=== PATIENT | female | born 1935 | race Caucasian/White ===

== ENCOUNTER 2016-11-08 13:45 | Outpatient (CLI) | payer MEDICARE, OTHER ==
[2016-11-08 16:39] LABS: #Basophils 0.1 thou/uL (0.0-0.2); #Eosinphils 0.1 thou/uL (0.0-0.7); #Lymphocytes 1.9 thou/uL (1.20-3.40); #Monocytes 0.3 thou/uL (0.11-0.59); #Neutrophils 2.1 thou/uL (1.40-6.50); %Basophils 1.3 % (0.0-1.0); %Monocytes 7.1 % (0.0-10.0); Hematocrit 40.4 % (36.0-47.0); Mean Platelet Volume 5.4 fL (7.4-10.4); Red Blood Cell (RBC) Count 4.26 mill/uL (4.20-5.40); White Blood Cell (WBC) Count 4.6 thou/uL (4.8-10.8)
[2016-11-08 16:54] LABS: ALT (SGPT) 10 U/L (0-55); AST (SGOT) 16 U/L (5-34); Alkaline Phosphatase 81 U/L (40-150); Anion Gap 17 mmol/L (10-20); BUN (Urea Nitrogen) 8 mg/dL (9.8-20.1); Bilirubin, Direct 0.1 mg/dL (0.1-0.3); Bilirubin, Total 0.4 mg/dL (0.2-1.2); Calc. Creatinine Clearance 0 mL/min (70-130); Calcium 9.7 mg/dL (7.8-10.44); Carbon Dioxide 27 mmol/L (23-31); Chloride 99 mmol/L (98-107); Estimated GFR-MDRD 72; LDL Cholesterol, Calculated 155 mg/dL; Protein, Total 7.4 g/dL (5.8-8.1)
[2016-11-08 20:17] LABS: Hemoglobin A1c 5.3 % (4.0-6.0)
== END 2016-11-08 13:46 | disposition home or self-care (01) ==
LOC: NAV LABSP 13:45
PROVIDERS: ATTEND Family Medicine
DX: J30.9 Allergic rhinitis, unspecified (principal); I10 Essential (primary) hypertension; K29.70 Gastritis, unspecified, without bleeding; R42 Dizziness and giddiness; M54.5 Low back pain; Z79.899 Other long term (current) drug therapy
CPT/HCPCS: 36415; 80048; 80061; 80076; 83036; 84443; 85025

== ENCOUNTER 2017-03-12 11:52 | Outpatient (CLI) | payer MEDICARE, OTHER ==
[2017-03-12 14:49] LABS: ALT (SGPT) 13 U/L (8-55); AST (SGOT) 19 U/L (5-34); Albumin 4.3 g/dL (3.4-4.8); Alkaline Phosphatase 73 U/L (40-150); Anion Gap 17 mmol/L (10-20); BUN (Urea Nitrogen) 12 mg/dL (9.8-20.1); Bilirubin, Direct 0.2 mg/dL (0.1-0.3); Bilirubin, Total 0.5 mg/dL (0.2-1.2); Calc. Creatinine Clearance 0 mL/min (70-130); Calcium 9.4 mg/dL (7.8-10.44); Carbon Dioxide 26 mmol/L (23-31); Chloride 97 mmol/L (98-107); Cholesterol 254 mg/dl (< 200 Desired); Estimated GFR-MDRD 78; Glucose 89 mg/dL (83-110); HDL Cholesterol 63 mg/dL (>60 Neg Risk); LDL Cholesterol, Calculated 164 mg/dL; Potassium 3.9 mmol/L (3.5-5.1); Protein, Total 7.3 g/dL (6.0-8.3); Sodium 136 mmol/L (136-145); Triglycerides 133 mg/dL (Less than 150)
[2017-03-12 15:03] LABS: Hemoglobin A1c 5.4 % (4.0-6.0)
[2017-03-12 19:21] LABS: Bilirubin Negative (Negative); Blood, Urine Small (Negative); Clarity Clear (Clear); Glucose, Urine (Dipstick) Negative (Negative); Leukocyte Large (Negative); Nitrite Positive (Negative); Protein, Urine (Dipstick) Negative (Neg-Trace); Urobilinogen 0.2 mg/dL (0.2-1.0)
[2017-03-12 20:16] LABS: Bacteria/HPF 3+ HPF (None Seen); RBC/HPF 0-3 HPF (0-3); Squamous Epithelial 0-3 HPF (0-3)
[2017-03-12 22:16] LABS: #Basophils 0.1 thou/uL (0.0-0.2); #Eosinphils 0.3 thou/uL (0.0-0.7); #Monocytes 0.5 thou/uL (0.11-0.59); #Neutrophils 2.2 thou/uL (1.40-6.50); %Basophils 2.9 % (0.0-1.0); %Eosinophils 5.5 % (0.0-10.0); %Lymphocytes 39.5 % (21.0-51.0); %Monocytes 8.8 % (0.0-10.0); %Neutrophils 43.3 % (42.0-75.0); Hemoglobin 12.9 g/dL (12.0-16.0); Mean Corpuscular HGB CONC 32.4 g/dL (32.0-36.0); Mean Corpuscular Hemoglobin 30.6 pg (27.0-31.0); Mean Corpuscular Volume 94.2 fl (81.0-99.0); Mean Platelet Volume 5.1 fL (7.4-10.4); Platelet Count 231 thou/uL (130-400); Red Blood Cell (RBC) Count 4.22 mill/uL (4.20-5.40); White Blood Cell (WBC) Count 5.1 thou/uL (4.8-10.8)
== END 2017-03-12 11:53 ==
LOC: NAVSJIPCSP 11:52
PROVIDERS: ATTEND Family Medicine
DX: E78.00 Pure hypercholesterolemia, unspecified (principal); R53.83 Other fatigue; I10 Essential (primary) hypertension; Z79.899 Other long term (current) drug therapy
CPT/HCPCS: 36415; 80048; 80061; 80076; 81003; 81015; 83036; 84443; 85025

== ENCOUNTER 2017-04-02 10:28 | Outpatient (CLI) | payer MEDICARE, OTHER ==
[2017-04-02 13:19] LABS: Bilirubin Negative (Negative); Blood, Urine Moderate (Negative); Clarity Clear (Clear); Glucose, Urine (Dipstick) Negative (Negative); Leukocyte Trace (Negative); Nitrite Negative (Negative); Protein, Urine (Dipstick) Negative (Neg-Trace); Urobilinogen 0.2 mg/dL (0.2-1.0)
[2017-04-02 13:48] LABS: Bacteria/HPF Rare-Few HPF (None Seen); Squamous Epithelial 0-3 HPF (0-3); WBC/HPF 0-3 HPF (0-3)
== END 2017-04-02 10:29 | disposition home or self-care (01) ==
LOC: NAVSJIPCSP 10:28
PROVIDERS: ATTEND Family Medicine
DX: N30.00 Acute cystitis without hematuria (principal)
CPT/HCPCS: 81003; 81015; 87086

== ENCOUNTER 2017-11-04 21:23 | Observation (INO) | payer MEDICARE, OTHER ==
[2017-11-04] MEDS ORDERED: Sodium Chloride 0.9% 1,000 ML ONE (21:54)
[2017-11-04] MEDS ORDERED: Ondansetron HCl/PF 4 MG/2 ML Vial ONE ×2 (21:56→23:26)
[2017-11-04 22:05] LABS: Bilirubin Negative (Negative); Blood, Urine Moderate (Negative); Clarity Clear (Clear); Glucose, Urine (Dipstick) Negative (Negative); Leukocyte Trace (Negative); Nitrite Negative (Negative); Protein, Urine (Dipstick) Negative (Neg-Trace); Urobilinogen 0.2 mg/dL (0.2-1.0)
[2017-11-04 22:10] LABS: Squamous Epithelial None Seen HPF (0-3); WBC/HPF 0-3 HPF (0-3)
[2017-11-04 22:11] LABS: Bacteria/HPF Rare-Few HPF (None Seen)
[2017-11-04 22:17] LABS: #Basophils 0.1 thou/uL (0.0-0.2); #Eosinphils 0.3 thou/uL (0.0-0.7); #Lymphocytes 2.2 thou/uL (1.20-3.40); #Monocytes 0.6 thou/uL (0.11-0.59); #Neutrophils 7.8 thou/uL (1.40-6.50); %Basophils 0.7 % (0.0-1.0); %Eosinophils 2.3 % (0.0-10.0); %Lymphocytes 20.5 % (21.0-51.0); %Monocytes 5.1 % (0.0-10.0); %Neutrophils 71.4 % (42.0-75.0); Hemoglobin 14.1 g/dL (12.0-16.0); Mean Corpuscular HGB CONC 32.9 g/dL (32.0-36.0); Mean Corpuscular Hemoglobin 29.9 pg (27.0-31.0); Mean Corpuscular Volume 90.9 fl (81.0-99.0); Mean Platelet Volume 6.4 fL (7.4-10.4); Platelet Count 238 thou/uL (130-400); RBC Distribution Width 11.9 % (11.5-14.5); White Blood Cell (WBC) Count 10.9 thou/uL (4.8-10.8)
[2017-11-04 22:31] LABS: ALT (SGPT) 16 U/L (8-55); AST (SGOT) 23 U/L (5-34); Albumin 4.9 g/dL (3.4-4.8); Alkaline Phosphatase 83 U/L (40-150); Anion Gap 17 mmol/L (10-20); BUN (Urea Nitrogen) 12 mg/dL (9.8-20.1); Bilirubin, Total 0.5 mg/dL (0.2-1.2); Calc. Creatinine Clearance 0 mL/min (70-130); Calcium 10.3 mg/dL (7.8-10.44); Carbon Dioxide 28 mmol/L (23-31); Chloride 90 mmol/L (98-107); Estimated GFR-MDRD 69; Globulin 3.9 g/dL (2.4-3.5); Glucose 125 mg/dL (83-110); Lipase 38 U/L (8-78); Protein, Total 8.8 g/dL (6.0-8.3); Sodium 132 mmol/L (136-145)
[2017-11-04] MEDS ORDERED: Potassium Chloride 20 MEQ TAB ONE (22:50)
[2017-11-04] MEDS ORDERED: Mag-Al Plus 1200 MG/1200 MG/120 MG/30 ML UDCUP ONE (23:11)
[2017-11-04] MEDS ORDERED: Morphine 4 MG/ML Carpuject ONE (23:55)
[2017-11-05] MEDS ORDERED: Promethazine HCl 25 MG/ML VIAL ONE (00:01)
[2017-11-05 01:16] VITALS: BMI 24.8
[2017-11-05] MEDS: Sodium Chloride 0.9% 1,000 ML IV SCH ×3 (01:44→11:07)
[2017-11-05] MEDS: Ondansetron HCl/PF 4 MG/2 ML Vial IVP PRN ×2 (02:59→09:25)
[2017-11-05] MEDS ORDERED: Milk Of Magnesia 30 ML UDCUP PO PRN (09:57)
[2017-11-05] MEDS ORDERED: Loperamide HCl 2 MG CAP PO PRN (09:57)
[2017-11-05] MEDS ORDERED: Sodium Chloride 0.9% 1,000 ML IV SCH (10:00)
[2017-11-05 15:44] VITALS: BP 135/64; TEMP 97.7
--- NOTE | 2017-11-05 20:38 | HP ---
DATE OF ADMISSION: 11/05/2017 OBSERVATION HISTORY AND PHYSICAL AND DISCHARGE HISTORY OF PRESENT ILLNESS: Ms. Ojeda is a very pleasant 82-year-old white female that Sunday nigh t, ate deviled eggs and sausage. Sunday morning, she was not feeling well, so she only ate Cracker b ut went to [facility] and had ice cream and then chicken soup. Soon after that, she had a very bad stomac toshia and took some Pepto-Bismol. She vomited, had increasing pain, went to the emergency room. It was noted that she was slightly dehydrated and had low potassium, so she was given potassium pills an d promptly threw that up. She started having vomiting and therefore ER doctor asked me to place her in observation for IV hydration. She was admitted to the hospital under observation. Patient states she was continued to feel poorly, but her IV made her feel better and she vomited abou t 3:30 and then she felt much better. This morning, the patient states she is feeling much better, but I told her to be cautious and we chio l start her off on clear liquids if that did well; at lunch, we will give her a bland diet. The patient tolerated bland diet well and states she feels much better and requests to go home. PAST MEDICAL HISTORY: Positive for, 1. Hypertension. 2. Hypercholesterolemia. 3. Back pain. 4. Cardiac arrhythmia. 5. Allergic rhinitis. 6. Sciatica. 7. Cervical disk degeneration. 8. Seborrheic dermatitis. 9. Gangrene of the left wrist. 10. Gastritis without bleeding in the distant past. 11. Anxiety, but will not take any SSRIs. PAST SURGICAL HISTORY: 1. Reveals the patient had a right lobe partial thyroidectomy in 1971. 2. The patient had a right breast lumpectomy in 1972. 3. Cholecystectomy in 1973. 4. Colonoscopy by Dr. Monroy in 07/2011. PRESENT MEDICATIONS: Revealed the patient presently takes, 1. Meclizine 1 tablet p.r.n. vertigo. 2. Robaxin 750 one q.4 hours p.r.n. severe muscle spasms and triamterene/hydrochlorothiazide which s he takes once daily, but she takes it p.r.n. when she feels like it. FAMILY HISTORY: Reveals patient's father at age 83 with thyroid cancer. The patient's mother d ied at age 52 of abdominal hysterectomy and blood clot. The patient has siblings with lung cancer, h eart disease. SOCIAL HISTORY: Reveals the patient is a smoker, does not drink any alcohol, does not exercise and d oes not use any drugs besides her Xanax that she has taken in the distant past. ALLERGIES: Reveal she is allergic to ASPIRIN, STATINS, WELCHOL and CELEBREX. REVIEW OF SYSTEMS: Reveal the patient denies any fever or chills, but had some night sweats. She de nies headache, but she had some weakness and fatigue. Denies any visual changes or hearing changes. The patient has not had any rhinorrhea, congestion, sore throat or hoarseness. She denies any cough , cold, congestion or hemoptysis. She denies any cardiovascular problems including edema, chest pain , orthopnea, claudication or dyspnea on exertion. The patient does have nausea, vomiting, and mid ab dominal pain which is resolved on examination this morning. She denies any diarrhea or constipation. Denies any genitourinary problems, urgency, frequency or dysuria. She denies any joint pain, back pain, muscle stiffness or weakness at this time. Denies any rashes. PHYSICAL EXAMINATION: GENERAL: This is a well-developed, well-nourished, white female in no apparent distress at this time . HEENT: Reveals normocephalic, nontraumatic cranium. Pupils are equally round and reactive. Extraoc ular movements are intact. Nose and throat are slightly dry. NECK: Supple, without mass, nodes or bruits. CHEST: Clear to auscultation. No rales, no rhonchi, no wheezes are heard. HEART: Reveals a regular rate and rhythm without murmurs, gallops or rubs. ABDOMEN: Soft, nontender. Normal bowel sounds are heard this morning. No rebound is noted. No gua rding is noted. No significant abdominal pain is noted. : Deferred. EXTREMITIES: Reveal no clubbing, no cyanosis or edema. Peripheral pulses are bilaterally equal. NEUROLOGIC: The patient is intact. She is oriented x3, no gross focal findings are noted. ASSESSMENT: 1. Gastroenteritis. 2. Dehydration. 3. Hypokalemia. 4. History of hypertension. 5. Hypercholesterolemia, refuses statins. 6. Allergic rhinitis. PLAN: 1. The patient was hydrated overnight. We will cut her IV down from 100 mL an hour to 50 mL an hour . 2. Feed the patient a clear liquid diet this morning. 3. If she tolerates that clear liquid diet, we will give her a bland diet at lunch. 4. Continue present medication, but hold triamterene for the next couple of days. 5. Supportive care. ADDENDUM: The patient's nurse called me this afternoon soon after the patient finished eating lunch and states she tolerated her bland diet very well. She is feeling back at 100% and she has her famil y there that wants to take her home. She did not have any problems with stomachache anymore. She is not vomiting. She feels well. She is up and walking around. Therefore, we will discharge the [place] ent. DISCHARGE MEDICATIONS: Include the following instructions: 1. [place] diet for the next 2-3 days. 2. Drink lots of liquids. 3. Hold triamterene/hydrochlorothiazide 75/50 until blood pressure gets back to her normal. 4. Contact the office with any further problems. 5. Make sure she follows up with me in my office in the next couple of weeks.
[2017-11-05] MEDS ORDERED: Famotidine 20 MG TAB PO SCH (21:00)
== END 2017-11-05 16:22 | disposition home or self-care (01) ==
LOC: NAV ERS 21:23 → NAV ACUTE 11-05 00:13 → UNDOADMOB 11-05 00:13
PROVIDERS: ADMIT Family Medicine; ATTEND Family Medicine
DX: K52.9 Noninfective gastroenteritis and colitis, unspecified (principal); E87.6 Hypokalemia; E86.0 Dehydration; I10 Essential (primary) hypertension; E78.00 Pure hypercholesterolemia, unspecified; J30.9 Allergic rhinitis, unspecified; I49.9 Cardiac arrhythmia, unspecified; M50.30 Other cervical disc degeneration, unspecified cervical region; L21.9 Seborrheic dermatitis, unspecified; E89.0 Postprocedural hypothyroidism; F41.9 Anxiety disorder, unspecified; F17.200 Nicotine dependence, unspecified, uncomplicated; Z88.8 Allergy status to other drugs, medicaments and biological substances; Z90.49 Acquired absence of other specified parts of digestive tract; Z98.890 Other specified postprocedural states; Z80.8 Family history of malignant neoplasm of other organs or systems
CPT/HCPCS: 80053; 81003; 81015; 83690; 85025; 87086; 96361; 96372; 96374; 96375; 96376; G0378; J2270; J2405; J2550; J7050

== ENCOUNTER 2022-05-18 16:55 | Emergency (ER) | payer MEDICARE ==
[~2022-05-18 16:55] MED LIST: Iopamidol 370 76% 100 ML VIAL ONE
[2022-05-18] MEDS ORDERED: Morphine 2 MG/ML VIAL ONE (19:21)
[2022-05-18] MEDS ORDERED: Sodium Chloride 0.9% 1,000 ML ONE (19:21)
[2022-05-18 19:22] LABS: #Eosinphils 0.1 thou/uL (0.0-0.7); #Lymphocytes 1.6 thou/uL (1.20-3.40); #Monocytes 0.5 thou/uL (0.11-0.59); #Neutrophils 4.6 thou/uL (1.40-6.50); %Basophils 0.6 % (0.0-1.0); %Lymphocytes 23.9 % (21.0-51.0); %Monocytes 6.9 % (0.0-10.0); %Neutrophils 67.5 % (42.0-75.0); Hemoglobin 11.5 g/dL (12.0-16.0); Mean Corpuscular HGB CONC 30.8 g/dL (32.0-36.0); Mean Corpuscular Hemoglobin 29.6 pg (27.0-31.0); Mean Corpuscular Volume 96.1 fL (78.0-98.0); Mean Platelet Volume 5.5 fL (7.4-10.4); Platelet Count 336 thou/uL (130-400); RBC Distribution Width 13.1 % (11.5-14.5); Red Blood Cell (RBC) Count 3.89 mill/uL (4.20-5.40); White Blood Cell (WBC) Count 6.8 thou/uL (4.8-10.8)
[2022-05-18 19:24] LABS: Bilirubin Negative (Negative); Blood, Urine Trace (Negative); Glucose, Urine (Dipstick) Negative (Negative); Ketone, Urine Negative (Negative); Leukocyte Large (Negative); Nitrite Negative (Negative); Protein, Urine (Dipstick) Negative (Neg-Trace); Urobilinogen 0.2 mg/dL (Less than 2)
[2022-05-18 19:25] LABS: Clarity Hazy (Clear)
[2022-05-18 19:43] LABS: ALT (SGPT) 17 U/L (8-55); AST (SGOT) 32 U/L (5-34); Albumin 4.3 g/dL (3.4-4.8); Alkaline Phosphatase 171 U/L (40-110); Anion Gap 19 mmol/L (10-20); BUN (Urea Nitrogen) 18 mg/dL (9.8-20.1); Bilirubin, Total 0.4 mg/dL (0.2-1.2); Calc. Creatinine Clearance 0 mL/min (70-130); Calcium 9.9 mg/dL (7.8-10.44); Carbon Dioxide 25 mmol/L (23-31); Chloride 92 mmol/L (98-107); Estimated GFR 77; Globulin 4.1 g/dL (2.4-3.5); Glucose 107 mg/dL (83-110); Potassium 3.6 mmol/L (3.5-5.1); Protein, Total 8.4 g/dL (5.8-8.1); Sodium 132 mmol/L (136-145)
[2022-05-18 19:49] LABS: RBC/HPF None Seen HPF (0-3); Specific Gravity, Urine 1.009 (1.002-1.036); Squamous Epithelial 0-3 HPF (0-3)
[2022-05-18 19:50] LABS: Bacteria/HPF 4+ HPF (None Seen)
[2022-05-18] MEDS ORDERED: cefTRIAXone\\ROCEPHIN 2 GM VIAL ONE (20:18)
[2022-05-18] MEDS ORDERED: Sodium Chloride 0.9% 100 ML ONE (20:18)
[2022-05-18] MEDS ORDERED: HYDROcodone/Acetaminophen 5/325 mg Tablet ONE (20:58)
== END 2022-05-18 21:35 | disposition home or self-care (01) ==
LOC: NAV ERS 16:55
DX: N30.00 Acute cystitis without hematuria (principal); R59.0 Localized enlarged lymph nodes; M54.50 Low back pain, unspecified; R10.32 Left lower quadrant pain; E78.00 Pure hypercholesterolemia, unspecified; I10 Essential (primary) hypertension; Z79.899 Other long term (current) drug therapy
CPT/HCPCS: 71275; 74174; 80053; 85025; 87077; 87086; 87186; 96361; 96365; 96375; 99284; J2270; 81003; 81015; J0696; J3490; J7050; Q9967

== ENCOUNTER 2022-05-22 17:00 | Observation (INO) | payer MEDICARE ==
[2022-05-22 18:45] LABS: #Basophils 0.1 thou/uL (0.0-0.2); #Lymphocytes 2.1 thou/uL (1.20-3.40); #Monocytes 0.8 thou/uL (0.11-0.59); #Neutrophils 5.4 thou/uL (1.40-6.50); %Basophils 0.7 % (0.0-1.0); %Eosinophils 0.6 % (0.0-10.0); %Monocytes 9.2 % (0.0-10.0); %Neutrophils 64.5 % (42.0-75.0); Hemoglobin 10.8 g/dL (12.0-16.0); Mean Corpuscular Hemoglobin 29.7 pg (27.0-31.0); Mean Corpuscular Volume 92.9 fL (78.0-98.0); Mean Platelet Volume 5.3 fL (7.4-10.4); Platelet Count 302 thou/uL (130-400); RBC Distribution Width 12.9 % (11.5-14.5); Red Blood Cell (RBC) Count 3.64 mill/uL (4.20-5.40); White Blood Cell (WBC) Count 8.4 thou/uL (4.8-10.8)
[2022-05-22] MEDS ORDERED: Morphine 2 MG/ML VIAL ONE (18:48)
[2022-05-22] MEDS ORDERED: Ondansetron PF 4 MG/2 ML Vial ONE (18:48)
[2022-05-22 19:08] LABS: ALT (SGPT) 17 U/L (8-55); AST (SGOT) 26 U/L (5-34); Alkaline Phosphatase 162 U/L (40-110); Anion Gap 19 mmol/L (10-20); BUN (Urea Nitrogen) 14 mg/dL (9.8-20.1); Bilirubin, Total 0.5 mg/dL (0.2-1.2); Calc. Creatinine Clearance 0 mL/min (70-130); Calcium 9.6 mg/dL (7.8-10.44); Carbon Dioxide 23 mmol/L (23-31); Chloride 88 mmol/L (98-107); Estimated GFR 84; Globulin 3.9 g/dL (2.4-3.5); Glucose 99 mg/dL (83-110); Lipase 27 U/L (8-78); Potassium 3.4 mmol/L (3.5-5.1); Protein, Total 7.9 g/dL (5.8-8.1); Sodium 127 mmol/L (136-145)
[2022-05-22] MEDS ORDERED: NS 0.9% w/ 20 MEQ KCL 1,000 ML ONE (22:43)
[2022-05-22] MEDS ORDERED: Bisacodyl 5 MG TAB ONE (23:05)
[2022-05-22 23:47] LABS: SARS-CoV-2 NAA Rapid Test Not Detected (NotDetected)
[2022-05-23] MEDS ORDERED: Magnesium Citrate 300 ML BOT PO PRN (00:13)
[2022-05-23] MEDS ORDERED: Ondansetron ODT 4 MG TAB SL PRN (00:15)
[2022-05-23] MEDS ORDERED: Ondansetron PF 4 MG/2 ML Vial IVP PRN (00:15)
[2022-05-23] MEDS ORDERED: Acetaminophen 325 MG TAB PO PRN (00:15)
[2022-05-23] MEDS ORDERED: NS 0.9% w/ 20 MEQ KCL 1,000 ML IV SCH (00:30)
[2022-05-23] MEDS ORDERED: cloNIDine 0.1 MG TAB PO SCH (01:00)
[2022-05-23] MEDS: HYDROcodone/Acetaminophen 5/325 mg Tablet PO PRN ×2 (01:04→06:31)
[2022-05-23 01:31] VITALS: BMI 26.9
[2022-05-23 06:22] LABS: #Basophils 0.1 thou/uL (0.0-0.2); #Eosinphils 0.1 thou/uL (0.0-0.7); #Lymphocytes 1.9 thou/uL (1.20-3.40); #Monocytes 0.7 thou/uL (0.11-0.59); #Neutrophils 3.3 thou/uL (1.40-6.50); %Basophils 1.5 % (0.0-1.0); %Eosinophils 0.9 % (0.0-10.0); %Lymphocytes 31.6 % (21.0-51.0); %Monocytes 11.4 % (0.0-10.0); %Neutrophils 54.6 % (42.0-75.0); Hemoglobin 9.7 g/dL (12.0-16.0); Mean Corpuscular HGB CONC 30.9 g/dL (32.0-36.0); Mean Corpuscular Hemoglobin 29.4 pg (27.0-31.0); Mean Corpuscular Volume 95.1 fL (78.0-98.0); Mean Platelet Volume 5.7 fL (7.4-10.4); Platelet Count 268 thou/uL (130-400); RBC Distribution Width 13.5 % (11.5-14.5); Red Blood Cell (RBC) Count 3.28 mill/uL (4.20-5.40)
[2022-05-23 06:28] LABS: Anion Gap 15 mmol/L (10-20); BUN (Urea Nitrogen) 11 mg/dL (9.8-20.1); Calc. Creatinine Clearance 66 mL/min (70-130); Calcium 8.9 mg/dL (7.8-10.44); Carbon Dioxide 24 mmol/L (23-31); Chloride 97 mmol/L (98-107); Estimated GFR 85; Glucose 94 mg/dL (83-110); Potassium 4.2 mmol/L (3.5-5.1); Sodium 132 mmol/L (136-145)
[2022-05-23] MEDS ORDERED: Methocarbamol 500 MG TAB PO SCH (09:00)
[2022-05-23] MEDS ORDERED: Lactulose 10 GM/15 ML Oral Solution PO SCH (09:00)
[2022-05-23] MEDS: Phenazopyridine HCl 95 MG TAB PO SCH ×3 (09:24→17:19)
[2022-05-23] MEDS: Nitrofurantoin Monohyd/M-Cryst 100 MG CAP PO SCH ×2 (09:24→20:24)
[2022-05-23] MEDS: traMADol HCl 50 MG TAB PO PRN (14:06)
[2022-05-23] MEDS: Acetaminophen 325 MG TAB PO PRN (19:26)
[2022-05-24] MEDS: traMADol HCl 50 MG TAB PO PRN (01:20)
[2022-05-24] MEDS: Acetaminophen 325 MG TAB PO PRN (06:48)
[2022-05-24] MEDS ORDERED: traMADol HCl 50 MG TAB PO PRN ×2 (08:04→08:06)
[2022-05-24] MEDS ORDERED: Acetaminophen 325 MG TAB PO PRN (08:06)
[2022-05-24] MEDS: Phenazopyridine HCl 95 MG TAB PO SCH ×2 (08:20→12:51)
[2022-05-24] MEDS: Nitrofurantoin Monohyd/M-Cryst 100 MG CAP PO SCH (08:20)
[2022-05-24] MEDS ORDERED: Lidocaine 5% Patch TD SCH (09:00)
[2022-05-24 11:33] VITALS: BP 133/70
[2022-05-24 12:17] VITALS: TEMP 97.6
[2022-05-24] MEDS ORDERED: Transdermal Patch Removal TOP SCH (21:00)
== END 2022-05-24 13:00 | disposition swing bed (61) ==
LOC: NAV ERS 17:00 → NAV ACUTE 23:53
PROVIDERS: ADMIT Family Medicine; ATTEND Family Medicine
DX: E87.1 Hypo-osmolality and hyponatremia (principal); E87.6 Hypokalemia; K59.01 Slow transit constipation; R11.2 Nausea with vomiting, unspecified; R53.1 Weakness; S22.080A Wedge compression fracture of T11-T12 vertebra, initial encounter for closed fracture; S32.021A Stable burst fracture of second lumbar vertebra, initial encounter for closed fracture; M16.0 Bilateral primary osteoarthritis of hip; E78.00 Pure hypercholesterolemia, unspecified; I10 Essential (primary) hypertension; N63.0 Unspecified lump in unspecified breast; E89.0 Postprocedural hypothyroidism; N39.0 Urinary tract infection, site not specified; Z91.81 History of falling; Z79.2 Long term (current) use of antibiotics; Z79.899 Other long term (current) drug therapy; Z88.8 Allergy status to other drugs, medicaments and biological substances; Z20.822 Contact with and (suspected) exposure to COVID-19; X58.XXXA Exposure to other specified factors, initial encounter
CPT/HCPCS: 36415; 71046; 74177; 80048; 80053; 82274; 83690; 85025; 90471; 90732; 96365; 96375; G0009; G0378; J2270; J2405; J3480; Q9967; U0002

== ENCOUNTER 2022-05-23 15:24 | Inpatient (IN) | payer MEDICARE ==
[2022-05-24] MEDS ORDERED: Promethazine HCl 25 MG SUPP PR PRN (13:31)
[2022-05-24] MEDS ORDERED: Bisacodyl 10 MG SUPP PR PRN (13:31)
[2022-05-24] MEDS ORDERED: Artificial Tear Sol 15 ML BOT EA EYE PRN (13:31)
[2022-05-24] MEDS ORDERED: Calcium Carbonate 500 MG ChewTAB PO PRN (13:31)
[2022-05-24] MEDS ORDERED: Cepastat Lozenges 1 LOZ PO PRN (13:31)
[2022-05-24] MEDS ORDERED: Sodium Chloride 0.65% Nasal 44 ML BOT EA NARE PRN (13:31)
[2022-05-24] MEDS ORDERED: Enoxaparin Sodium 40 MG/0.4 ML SYRINGE SC SCH (14:00)
[2022-05-24] MEDS: traMADol HCl 50 MG TAB PO PRN (20:59)
[2022-05-24] MEDS: Famotidine 20 MG TAB PO SCH (20:59)
[2022-05-24] MEDS ORDERED: Triamcinolone 0.1% Cream 15 GM TUBE TOP SCH ×2 (21:30→23:00)
[2022-05-24] MEDS ORDERED: Nitrofurantoin Monohyd/M-Cryst 100 MG CAP PO SCH ×2 (23:00)
[2022-05-25 06:15] LABS: #Basophils 0.1 thou/uL (0.0-0.2); #Lymphocytes 1.5 thou/uL (1.20-3.40); #Monocytes 0.7 thou/uL (0.11-0.59); #Neutrophils 4.5 thou/uL (1.40-6.50); %Basophils 0.7 % (0.0-1.0); %Eosinophils 0.4 % (0.0-10.0); %Lymphocytes 22.1 % (21.0-51.0); %Monocytes 10.6 % (0.0-10.0); %Neutrophils 66.1 % (42.0-75.0); Hemoglobin 9.4 g/dL (12.0-16.0); Mean Corpuscular HGB CONC 30.7 g/dL (32.0-36.0); Mean Corpuscular Hemoglobin 29.1 pg (27.0-31.0); Mean Corpuscular Volume 94.9 fL (78.0-98.0); Mean Platelet Volume 5.5 fL (7.4-10.4); Platelet Count 272 thou/uL (130-400); RBC Distribution Width 13.4 % (11.5-14.5); Red Blood Cell (RBC) Count 3.22 mill/uL (4.20-5.40); White Blood Cell (WBC) Count 6.8 thou/uL (4.8-10.8)
[2022-05-25 06:25] LABS: Anion Gap 14 mmol/L (10-20); BUN (Urea Nitrogen) 6 mg/dL (9.8-20.1); Calc. Creatinine Clearance 74 mL/min (70-130); Calcium 8.9 mg/dL (7.8-10.44); Carbon Dioxide 26 mmol/L (23-31); Chloride 94 mmol/L (98-107); Estimated GFR 87; Glucose 112 mg/dL (83-110); Potassium 3.2 mmol/L (3.5-5.1); Sodium 131 mmol/L (136-145)
[2022-05-25] MEDS: Nitrofurantoin Monohyd/M-Cryst 100 MG CAP PO SCH ×2 (08:45→20:08)
[2022-05-25] MEDS: Phenazopyridine HCl 95 MG TAB PO SCH ×3 (08:45→18:06)
[2022-05-25] MEDS: Famotidine 20 MG TAB PO SCH ×2 (08:45→20:08)
[2022-05-25] MEDS: Lidocaine 5% Patch TD SCH (08:45)
[2022-05-25] MEDS: Triamterene/Hydrochlorothiazide 37.5 mg/25 mg Tablet PO SCH (08:45)
[2022-05-25] MEDS: Triamcinolone 0.1% Cream 15 GM TUBE TOP SCH ×2 (08:50→20:08)
[2022-05-25] MEDS: traMADol HCl 50 MG TAB PO PRN ×2 (09:10→20:07)
[2022-05-25] MEDS: Ondansetron ODT 4 MG TAB PO PRN (10:17)
[2022-05-25] MEDS: Senokot S 8.6-50 MG TAB PO PRN (12:59)
[2022-05-25] MEDS: Acetaminophen 325 MG TAB PO PRN (12:59)
[2022-05-25] MEDS: LIDOCAINE Patch Removal TOP SCH (20:09)
[2022-05-26] MEDS: traMADol HCl 50 MG TAB PO PRN ×2 (08:54→18:43)
[2022-05-26] MEDS: Nitrofurantoin Monohyd/M-Cryst 100 MG CAP PO SCH ×2 (08:56→20:44)
[2022-05-26] MEDS: Benzonatate 100 MG CAP PO PRN (08:56)
[2022-05-26] MEDS: Lidocaine 5% Patch TD SCH (08:56)
[2022-05-26] MEDS: Famotidine 20 MG TAB PO SCH ×2 (08:56→20:44)
[2022-05-26] MEDS: Triamterene/Hydrochlorothiazide 37.5 mg/25 mg Tablet PO SCH (08:56)
[2022-05-26] MEDS: Phenazopyridine HCl 95 MG TAB PO SCH ×3 (08:56→18:27)
[2022-05-26] MEDS: Triamcinolone 0.1% Cream 15 GM TUBE TOP SCH ×2 (08:58→20:44)
[2022-05-26] MEDS: Senokot S 8.6-50 MG TAB PO PRN (11:22)
[2022-05-26] MEDS ORDERED: Phenazopyridine HCl 95 MG TAB ONE (11:52)
[2022-05-26] MEDS: Potassium Chloride 20 MEQ TAB PO SCH (18:27)
[2022-05-26] MEDS: Bisacodyl 5 MG TAB PO PRN (20:44)
[2022-05-26] MEDS: LIDOCAINE Patch Removal TOP SCH (20:45)
[2022-05-27] MEDS: traMADol HCl 50 MG TAB PO PRN ×3 (02:49→21:09)
[2022-05-27 05:52] LABS: Anion Gap 17 mmol/L (10-20); BUN (Urea Nitrogen) 10 mg/dL (9.8-20.1); Calc. Creatinine Clearance 64 mL/min (70-130); Calcium 9.2 mg/dL (7.8-10.44); Carbon Dioxide 28 mmol/L (23-31); Chloride 90 mmol/L (98-107); Estimated GFR 84; Glucose 98 mg/dL (83-110); Potassium 3.5 mmol/L (3.5-5.1); Sodium 131 mmol/L (136-145)
[2022-05-27 05:54] LABS: Magnesium 1.7 mg/dL (1.6-2.6)
[2022-05-27] MEDS: Polyethylene Glycol 3350 17 GM Packet PO SCH (09:21)
[2022-05-27] MEDS: Triamcinolone 0.1% Cream 15 GM TUBE TOP SCH ×2 (09:22→21:09)
[2022-05-27] MEDS: Lidocaine 5% Patch TD SCH (09:22)
[2022-05-27] MEDS: Potassium Chloride 20 MEQ TAB PO SCH (09:23)
[2022-05-27] MEDS: Phenazopyridine HCl 95 MG TAB PO SCH ×3 (09:23→18:32)
[2022-05-27] MEDS: Famotidine 20 MG TAB PO SCH ×2 (09:24→21:09)
[2022-05-27] MEDS: Triamterene/Hydrochlorothiazide 37.5 mg/25 mg Tablet PO SCH (09:24)
[2022-05-27] MEDS: Bisacodyl 5 MG TAB PO PRN (15:05)
[2022-05-27] MEDS: LIDOCAINE Patch Removal TOP SCH (22:23)
[2022-05-27] MEDS: Methocarbamol 500 MG TAB PO PRN (23:37)
[2022-05-28 00:44] LABS: BUN (Urea Nitrogen) 12 mg/dL (9.8-20.1); Calc. Creatinine Clearance 61 mL/min (70-130); Calcium 9.1 mg/dL (7.8-10.44); Carbon Dioxide 24 mmol/L (23-31); Estimated GFR 83; Glucose 120 mg/dL (83-110)
[2022-05-28 00:50] LABS: Chloride 87 mmol/L (98-107); Potassium 3.5 mmol/L (3.5-5.1); Sodium 125 mmol/L (136-145)
[2022-05-28 01:06] LABS: Anion Gap 13 mmol/L (10-20)
[2022-05-28 05:35] LABS: Magnesium 1.6 mg/dL (1.6-2.6); Phosphorus 3.2 mg/dL (2.3-4.7)
[2022-05-28 08:02] LABS: #Eosinphils 0.1 thou/uL (0.0-0.7); #Lymphocytes 0.7 thou/uL (1.20-3.40); #Monocytes 0.5 thou/uL (0.11-0.59); %Basophils 0.9 % (0.0-1.0); %Lymphocytes 15.5 % (21.0-51.0); %Monocytes 11.2 % (0.0-10.0); %Neutrophils 70.3 % (42.0-75.0); Hemoglobin 10.5 g/dL (12.0-16.0); Mean Corpuscular HGB CONC 32.2 g/dL (32.0-36.0); Mean Corpuscular Hemoglobin 30.4 pg (27.0-31.0); Mean Corpuscular Volume 94.2 fL (78.0-98.0); Mean Platelet Volume 5.3 fL (7.4-10.4); Platelet Count 347 thou/uL (130-400); RBC Distribution Width 12.9 % (11.5-14.5); Red Blood Cell (RBC) Count 3.47 mill/uL (4.20-5.40); White Blood Cell (WBC) Count 4.2 thou/uL (4.8-10.8)
[2022-05-28 08:13] LABS: Anion Gap 17 mmol/L (10-20); BUN (Urea Nitrogen) 9 mg/dL (9.8-20.1); Calc. Creatinine Clearance 65 mL/min (70-130); Calcium 9.5 mg/dL (7.8-10.44); Carbon Dioxide 30 mmol/L (23-31); Chloride 89 mmol/L (98-107); Estimated GFR 83; Glucose 102 mg/dL (83-110); Potassium 3.6 mmol/L (3.5-5.1); Sodium 132 mmol/L (136-145)
[2022-05-28] MEDS: Methocarbamol 500 MG TAB PO PRN ×2 (09:19→20:28)
[2022-05-28] MEDS: Phenazopyridine HCl 95 MG TAB PO SCH ×3 (09:20→17:41)
[2022-05-28] MEDS: Famotidine 20 MG TAB PO SCH ×2 (09:20→20:28)
[2022-05-28] MEDS: Amlodipine 5 MG TAB PO SCH (09:20)
[2022-05-28] MEDS: Lidocaine 5% Patch TD SCH (09:20)
[2022-05-28] MEDS: Polyethylene Glycol 3350 17 GM Packet PO SCH (09:21)
[2022-05-28] MEDS: Triamcinolone 0.1% Cream 15 GM TUBE TOP SCH ×2 (09:22→20:30)
[2022-05-28] MEDS: Ondansetron ODT 4 MG TAB PO PRN ×2 (09:29→13:22)
[2022-05-28] MEDS: traMADol HCl 50 MG TAB PO PRN ×2 (13:21→20:29)
[2022-05-28] MEDS: Loratadine 10 MG TAB PO PRN (15:41)
[2022-05-28] MEDS: Benzonatate 100 MG CAP PO PRN (20:28)
[2022-05-28] MEDS: LIDOCAINE Patch Removal TOP SCH (20:29)
[2022-05-29 06:06] LABS: Anion Gap 15 mmol/L (10-20); BUN (Urea Nitrogen) 8 mg/dL (9.8-20.1); Calc. Creatinine Clearance 70 mL/min (70-130); Carbon Dioxide 30 mmol/L (23-31); Chloride 93 mmol/L (98-107); Estimated GFR 85; Glucose 101 mg/dL (83-110); Potassium 3.2 mmol/L (3.5-5.1); Sodium 135 mmol/L (136-145)
[2022-05-29] MEDS: Ondansetron ODT 4 MG TAB PO PRN (07:57)
[2022-05-29] MEDS: Fluticasone Propionate Nasal Spray 16 gm Bottle NASAL SCH (07:59)
[2022-05-29] MEDS: Lidocaine 5% Patch TD SCH (08:00)
[2022-05-29] MEDS: Famotidine 20 MG TAB PO SCH ×2 (08:43→19:53)
[2022-05-29] MEDS: Amlodipine 5 MG TAB PO SCH (08:43)
[2022-05-29] MEDS: Polyethylene Glycol 3350 17 GM Packet PO SCH (08:44)
[2022-05-29] MEDS: Phenazopyridine HCl 95 MG TAB PO SCH ×3 (08:44→18:40)
[2022-05-29] MEDS: Triamcinolone 0.1% Cream 15 GM TUBE TOP SCH ×2 (08:47→19:56)
[2022-05-29] MEDS ORDERED: Lactulose 10 GM/15 ML Oral Solution ONE (08:52)
[2022-05-29] MEDS: Acetaminophen 325 MG TAB PO PRN (12:06)
[2022-05-29] MEDS: traMADol HCl 50 MG TAB PO PRN ×2 (18:40→19:51)
[2022-05-29] MEDS: LIDOCAINE Patch Removal TOP SCH (19:56)
[2022-05-29] MEDS ORDERED: traMADol HCl 50 MG TAB PO SCH (20:15)
[2022-05-30] MEDS: Fluticasone Propionate Nasal Spray 16 gm Bottle NASAL SCH (08:46)
[2022-05-30] MEDS: Ondansetron ODT 4 MG TAB PO PRN (08:48)
[2022-05-30] MEDS: Lidocaine 5% Patch TD SCH (08:49)
[2022-05-30] MEDS: Famotidine 20 MG TAB PO SCH ×2 (12:54→21:18)
[2022-05-30] MEDS: Phenazopyridine HCl 95 MG TAB PO SCH ×3 (12:54→17:12)
[2022-05-30] MEDS: Polyethylene Glycol 3350 17 GM Packet PO SCH (12:54)
[2022-05-30] MEDS: Amlodipine 5 MG TAB PO SCH (12:54)
[2022-05-30] MEDS: traMADol HCl 50 MG TAB PO PRN ×2 (13:00→21:22)
[2022-05-30] MEDS: Triamcinolone 0.1% Cream 15 GM TUBE TOP SCH ×2 (15:13→21:19)
[2022-05-30] MEDS ORDERED: Clotrimazole 1% Cream 15 GM TUBE TOP SCH (15:15)
[2022-05-30] MEDS: LIDOCAINE Patch Removal TOP SCH (21:18)
[2022-05-31 06:23] LABS: Anion Gap 16 mmol/L (10-20); BUN (Urea Nitrogen) 8 mg/dL (9.8-20.1); Calc. Creatinine Clearance 69 mL/min (70-130); Calcium 8.5 mg/dL (7.8-10.44); Carbon Dioxide 28 mmol/L (23-31); Chloride 91 mmol/L (98-107); Estimated GFR 85; Glucose 103 mg/dL (83-110); Potassium 3.7 mmol/L (3.5-5.1); Sodium 131 mmol/L (136-145)
[2022-05-31 06:41] LABS: #Basophils 0.1 thou/uL (0.0-0.2); #Eosinphils 0.3 thou/uL (0.0-0.7); #Lymphocytes 0.7 thou/uL (1.20-3.40); #Monocytes 0.4 thou/uL (0.11-0.59); #Neutrophils 4.2 thou/uL (1.40-6.50); %Basophils 0.9 % (0.0-1.0); %Eosinophils 4.5 % (0.0-10.0); %Lymphocytes 13.1 % (21.0-51.0); %Neutrophils 74.5 % (42.0-75.0); Hemoglobin 9.9 g/dL (12.0-16.0); Mean Corpuscular HGB CONC 32.3 g/dL (32.0-36.0); Mean Corpuscular Hemoglobin 30.5 pg (27.0-31.0); Mean Corpuscular Volume 94.6 fL (78.0-98.0); Mean Platelet Volume 4.9 fL (7.4-10.4); Platelet Count 277 thou/uL (130-400); RBC Distribution Width 13.5 % (11.5-14.5); Red Blood Cell (RBC) Count 3.24 mill/uL (4.20-5.40); White Blood Cell (WBC) Count 5.7 thou/uL (4.8-10.8)
[2022-05-31] MEDS: Polyethylene Glycol 3350 17 GM Packet PO SCH (09:35)
[2022-05-31] MEDS: Lidocaine 5% Patch TD SCH (09:35)
[2022-05-31] MEDS: Phenazopyridine HCl 95 MG TAB PO SCH ×3 (09:37→17:45)
[2022-05-31] MEDS: Potassium Chloride 20 MEQ TAB PO SCH ×2 (09:37→17:46)
[2022-05-31] MEDS: Amlodipine 5 MG TAB PO SCH (09:37)
[2022-05-31] MEDS: Famotidine 20 MG TAB PO SCH ×2 (09:37→21:03)
[2022-05-31] MEDS: traMADol HCl 50 MG TAB PO PRN ×2 (09:39→21:36)
[2022-05-31] MEDS: Fluticasone Propionate Nasal Spray 16 gm Bottle NASAL SCH (09:41)
[2022-05-31] MEDS: Clotrimazole 1% Cream 15 GM TUBE TOP SCH (09:41)
[2022-05-31] MEDS: Triamcinolone 0.1% Cream 15 GM TUBE TOP SCH (09:42)
[2022-05-31] MEDS: Loratadine 10 MG TAB PO PRN (10:42)
[2022-05-31] MEDS: Senokot S 8.6-50 MG TAB PO PRN (11:45)
[2022-05-31] MEDS ORDERED: diphenhydrAMINE 25 MG CAP PO PRN (13:00)
[2022-05-31] MEDS: LIDOCAINE Patch Removal TOP SCH (21:03)
[2022-06-01] MEDS: Methocarbamol 500 MG TAB PO PRN (01:59)
[2022-06-01] MEDS: Amlodipine 5 MG TAB PO SCH (11:35)
[2022-06-01] MEDS: Clotrimazole 1% Cream 15 GM TUBE TOP SCH (11:36)
[2022-06-01] MEDS: Potassium Chloride 20 MEQ TAB PO SCH ×2 (11:36→17:37)
[2022-06-01] MEDS: Famotidine 20 MG TAB PO SCH ×2 (11:36→21:03)
[2022-06-01] MEDS: Lidocaine 5% Patch TD SCH (11:37)
[2022-06-01] MEDS: Fluticasone Propionate Nasal Spray 16 gm Bottle NASAL SCH (11:37)
[2022-06-01] MEDS: Phenazopyridine HCl 95 MG TAB PO SCH ×3 (11:37→17:38)
[2022-06-01] MEDS: Polyethylene Glycol 3350 17 GM Packet PO SCH (12:07)
[2022-06-01] MEDS ORDERED: CITRIC ACID PO SCH (16:15)
[2022-06-01] MEDS ORDERED: MAGNESIUM OXIDE PO SCH (16:15)
[2022-06-01] MEDS ORDERED: [UNRECOGNIZED DRUG - OTHER] PO SCH (16:15)
[2022-06-01] MEDS: Ondansetron ODT 4 MG TAB PO PRN (17:36)
[2022-06-01] MEDS: Loratadine 10 MG TAB PO PRN (17:38)
[2022-06-01] MEDS: LIDOCAINE Patch Removal TOP SCH (21:03)
[2022-06-01] MEDS: traMADol HCl 50 MG TAB PO PRN (21:08)
[2022-06-02] MEDS: Methocarbamol 500 MG TAB PO PRN (00:24)
[2022-06-02] MEDS: Lidocaine 5% Patch TD SCH (09:17)
[2022-06-02] MEDS: Clotrimazole 1% Cream 15 GM TUBE TOP SCH (09:17)
[2022-06-02] MEDS: Amlodipine 5 MG TAB PO SCH (09:18)
[2022-06-02] MEDS: Phenazopyridine HCl 95 MG TAB PO SCH ×3 (09:18→17:42)
[2022-06-02] MEDS: Fluticasone Propionate Nasal Spray 16 gm Bottle NASAL SCH (09:19)
[2022-06-02] MEDS: Famotidine 20 MG TAB PO SCH ×2 (09:19→20:33)
[2022-06-02] MEDS: Polyethylene Glycol 3350 17 GM Packet PO SCH (09:20)
[2022-06-02] MEDS: traMADol HCl 50 MG TAB PO PRN ×2 (13:02→20:32)
[2022-06-02] MEDS: LIDOCAINE Patch Removal TOP SCH (20:33)
[2022-06-03 05:56] LABS: #Basophils 0.1 thou/uL (0.0-0.2); #Eosinphils 0.3 thou/uL (0.0-0.7); #Lymphocytes 0.8 thou/uL (1.20-3.40); #Monocytes 0.5 thou/uL (0.11-0.59); #Neutrophils 4.2 thou/uL (1.40-6.50); %Basophils 0.9 % (0.0-1.0); %Eosinophils 5.5 % (0.0-10.0); %Lymphocytes 13.4 % (21.0-51.0); %Monocytes 7.8 % (0.0-10.0); %Neutrophils 72.4 % (42.0-75.0); Hemoglobin 9.7 g/dL (12.0-16.0); Mean Corpuscular HGB CONC 31.3 g/dL (32.0-36.0); Mean Corpuscular Hemoglobin 30.2 pg (27.0-31.0); Mean Corpuscular Volume 96.4 fL (78.0-98.0); Mean Platelet Volume 5.2 fL (7.4-10.4); Platelet Count 221 thou/uL (130-400); RBC Distribution Width 14.5 % (11.5-14.5); White Blood Cell (WBC) Count 5.8 thou/uL (4.8-10.8)
[2022-06-03 06:15] LABS: Anion Gap 19 mmol/L (10-20); BUN (Urea Nitrogen) 7 mg/dL (9.8-20.1); Calc. Creatinine Clearance 73 mL/min (70-130); Carbon Dioxide 24 mmol/L (23-31); Chloride 94 mmol/L (98-107); Estimated GFR 86; Glucose 100 mg/dL (83-110); Magnesium 1.6 mg/dL (1.6-2.6); Potassium 3.9 mmol/L (3.5-5.1); Sodium 133 mmol/L (136-145)
[2022-06-03 06:16] LABS: Phosphorus 3.6 mg/dL (2.3-4.7)
[2022-06-03] MEDS: Fluticasone Propionate Nasal Spray 16 gm Bottle NASAL SCH (08:19)
[2022-06-03] MEDS: Polyethylene Glycol 3350 17 GM Packet PO SCH (08:21)
[2022-06-03] MEDS: Famotidine 20 MG TAB PO SCH ×2 (08:22→20:43)
[2022-06-03] MEDS: Phenazopyridine HCl 95 MG TAB PO SCH ×3 (08:22→16:48)
[2022-06-03] MEDS: Amlodipine 5 MG TAB PO SCH (08:23)
[2022-06-03] MEDS: Lidocaine 5% Patch TD SCH (08:24)
[2022-06-03] MEDS: Loratadine 10 MG TAB PO PRN (08:32)
[2022-06-03] MEDS: Clotrimazole 1% Cream 15 GM TUBE TOP SCH (08:33)
[2022-06-03] MEDS: Ondansetron ODT 4 MG TAB PO PRN (08:38)
[2022-06-03] MEDS: hydrOXYzine 25 MG TAB PO PRN (16:48)
[2022-06-03] MEDS: traMADol HCl 50 MG TAB PO PRN (20:44)
[2022-06-03] MEDS: Benzonatate 100 MG CAP PO PRN (20:44)
[2022-06-03] MEDS: LIDOCAINE Patch Removal TOP SCH (21:00)
[2022-06-04] MEDS: Lidocaine 5% Patch TD SCH (09:30)
[2022-06-04] MEDS: Fluticasone Propionate Nasal Spray 16 gm Bottle NASAL SCH (09:31)
[2022-06-04] MEDS: Polyethylene Glycol 3350 17 GM Packet PO SCH (09:31)
[2022-06-04] MEDS: Phenazopyridine HCl 95 MG TAB PO SCH (09:32)
[2022-06-04] MEDS: Amlodipine 5 MG TAB PO SCH (09:32)
[2022-06-04] MEDS: Loratadine 10 MG TAB PO SCH (09:33)
[2022-06-04] MEDS: Famotidine 20 MG TAB PO SCH ×2 (09:33→21:03)
[2022-06-04] MEDS: Clotrimazole 1% Cream 15 GM TUBE TOP SCH (09:34)
[2022-06-04] MEDS: hydrOXYzine 25 MG TAB PO PRN ×2 (11:56→17:45)
[2022-06-04] MEDS: traMADol HCl 50 MG TAB PO PRN ×2 (12:58→21:04)
[2022-06-04] MEDS: LIDOCAINE Patch Removal TOP SCH (21:15)
[2022-06-05] MEDS: Lidocaine 5% Patch TD SCH (08:26)
[2022-06-05] MEDS: hydrOXYzine 25 MG TAB PO PRN ×2 (08:26→17:09)
[2022-06-05] MEDS: Loratadine 10 MG TAB PO SCH (08:26)
[2022-06-05] MEDS: Amlodipine 5 MG TAB PO SCH (08:27)
[2022-06-05] MEDS: Famotidine 20 MG TAB PO SCH ×2 (08:27→20:31)
[2022-06-05] MEDS: Fluticasone Propionate Nasal Spray 16 gm Bottle NASAL SCH (08:27)
[2022-06-05] MEDS: Clotrimazole 1% Cream 15 GM TUBE TOP SCH (08:28)
[2022-06-05] MEDS: Polyethylene Glycol 3350 17 GM Packet PO SCH (08:29)
[2022-06-05 15:55] VITALS: BMI 28.8
[2022-06-05] MEDS: Guaifenesin DM 100-10/5 ML UDCUP PO PRN (19:43)
[2022-06-05] MEDS ORDERED: Furosemide 20 MG TAB PO SCH (19:45)
[2022-06-05] MEDS: Acetaminophen 325 MG TAB PO PRN (20:31)
[2022-06-05] MEDS: LIDOCAINE Patch Removal TOP SCH (21:59)
[2022-06-06] MEDS: Guaifenesin DM 100-10/5 ML UDCUP PO PRN (03:42)
[2022-06-06 06:06] LABS: #Basophils 0.1 thou/uL (0.0-0.2); #Eosinphils 0.2 thou/uL (0.0-0.7); #Lymphocytes 0.7 thou/uL (1.20-3.40); #Monocytes 0.4 thou/uL (0.11-0.59); #Neutrophils 6.2 thou/uL (1.40-6.50); %Eosinophils 2.9 % (0.0-10.0); %Lymphocytes 9.4 % (21.0-51.0); %Monocytes 5.7 % (0.0-10.0); %Neutrophils 80.9 % (42.0-75.0); Hemoglobin 10.2 g/dL (12.0-16.0); Mean Corpuscular HGB CONC 31.8 g/dL (32.0-36.0); Mean Corpuscular Hemoglobin 30.9 pg (27.0-31.0); Mean Corpuscular Volume 96.9 fL (78.0-98.0); Mean Platelet Volume 5.7 fL (7.4-10.4); Platelet Count 254 thou/uL (130-400); RBC Distribution Width 15.3 % (11.5-14.5); White Blood Cell (WBC) Count 7.7 thou/uL (4.8-10.8)
[2022-06-06 06:22] LABS: Anion Gap 17 mmol/L (10-20); BUN (Urea Nitrogen) 7 mg/dL (9.8-20.1); Calc. Creatinine Clearance 72 mL/min (70-130); Calcium 8.4 mg/dL (7.8-10.44); Carbon Dioxide 26 mmol/L (23-31); Chloride 98 mmol/L (98-107); Estimated GFR 85; Glucose 115 mg/dL (83-110); Potassium 3.8 mmol/L (3.5-5.1); Sodium 137 mmol/L (136-145)
[2022-06-06 07:42] VITALS: BP 152/75; TEMP 98.3
[2022-06-06] MEDS: Ondansetron ODT 4 MG TAB PO PRN (08:12)
[2022-06-06] MEDS: Loratadine 10 MG TAB PO SCH (08:13)
[2022-06-06] MEDS: Amlodipine 5 MG TAB PO SCH (08:13)
[2022-06-06] MEDS: Acetaminophen 325 MG TAB PO PRN (08:14)
[2022-06-06] MEDS: Famotidine 20 MG TAB PO SCH (08:14)
[2022-06-06] MEDS: Fluticasone Propionate Nasal Spray 16 gm Bottle NASAL SCH (08:15)
[2022-06-06] MEDS: Clotrimazole 1% Cream 15 GM TUBE TOP SCH (08:15)
[2022-06-06] MEDS: Lidocaine 5% Patch TD SCH ×2 (08:15→10:31)
[2022-06-06] MEDS: Polyethylene Glycol 3350 17 GM Packet PO SCH (08:16)
[2022-06-09] MEDS ORDERED: GoLYTELY 4,000 ml Bottle PO SCH (05:00)
== END 2022-06-06 10:29 | disposition short-term general hospital (02) | DRG 392 ==
LOC: NAV ACUTE 05-24 13:34
PROVIDERS: ADMIT Family Medicine; ATTEND Family Medicine
DX: K59.00 Constipation, unspecified (principal); E87.1 Hypo-osmolality and hyponatremia; S32.021A Stable burst fracture of second lumbar vertebra, initial encounter for closed fracture; N39.0 Urinary tract infection, site not specified; S22.088A Other fracture of T11-T12 vertebra, initial encounter for closed fracture; R53.1 Weakness; E87.6 Hypokalemia; I10 Essential (primary) hypertension; E78.5 Hyperlipidemia, unspecified; F41.9 Anxiety disorder, unspecified; I49.9 Cardiac arrhythmia, unspecified; E89.0 Postprocedural hypothyroidism; M54.50 Low back pain, unspecified; G89.29 Other chronic pain; D64.9 Anemia, unspecified; R53.81 Other malaise; M19.90 Unspecified osteoarthritis, unspecified site; J30.2 Other seasonal allergic rhinitis; L29.9 Pruritus, unspecified; R25.1 Tremor, unspecified; M67.40 Ganglion, unspecified site; Z20.822 Contact with and (suspected) exposure to COVID-19; N63.0 Unspecified lump in unspecified breast; Z90.49 Acquired absence of other specified parts of digestive tract; Z88.8 Allergy status to other drugs, medicaments and biological substances; Z91.81 History of falling; Z98.890 Other specified postprocedural states; Z79.899 Other long term (current) drug therapy
CPT/HCPCS: 36415; 80048; 83735; 83880; 83930; 83935; 84100; 84300; 85025; 87811; J1650; Q0162

== ENCOUNTER 2022-06-14 15:00 | Inpatient (IN) | payer MEDICARE ==
[2022-06-14] MEDS ORDERED: Senokot S 8.6-50 MG TAB PO PRN (17:07)
[2022-06-14] MEDS ORDERED: Bisacodyl 5 MG TAB PO PRN (17:07)
[2022-06-14] MEDS ORDERED: Calcium Carbonate 500 MG ChewTAB PO PRN (17:07)
[2022-06-14] MEDS ORDERED: Acetaminophen 325 MG TAB PO PRN (17:07)
[2022-06-14] MEDS ORDERED: Artificial Tear Sol 15 ML BOT EA EYE PRN (17:07)
[2022-06-14] MEDS ORDERED: Acetaminophen 650 MG Suppository PR PRN (17:07)
[2022-06-14] MEDS ORDERED: Bisacodyl 10 MG SUPP PR PRN (17:07)
[2022-06-14] MEDS ORDERED: traMADol HCl 50 MG TAB PO PRN (17:14)
[2022-06-15] MEDS ORDERED: traMADol HCl 50 MG TAB PO PRN (13:02)
[2022-06-15] MEDS ORDERED: Acetaminophen 650 MG Suppository PR PRN (13:02)
[2022-06-15] MEDS: Famotidine 20 MG TAB PO SCH ×3 (14:18→21:31)
[2022-06-15] MEDS: Lidocaine 5% Patch TD SCH (14:19)
[2022-06-15] MEDS: Metoclopramide 10 MG/10 ML UDCUP PO SCH ×2 (16:58→21:33)
[2022-06-15] MEDS: Apixaban 5 MG TAB PO SCH (21:33)
[2022-06-15] MEDS: Methocarbamol 500 MG TAB PO PRN (21:40)
[2022-06-16] MEDS: LIDOCAINE Patch Removal TOP SCH (01:14)
[2022-06-16] MEDS: Acetaminophen 325 MG TAB PO PRN ×3 (02:04→19:44)
[2022-06-16] MEDS: hydrOXYzine 25 MG TAB PO PRN ×2 (02:10→12:46)
[2022-06-16 06:07] LABS: #Basophils 0.1 thou/uL (0.0-0.2); #Eosinphils 0.5 thou/uL (0.0-0.7); #Lymphocytes 1.3 thou/uL (1.20-3.40); #Monocytes 0.5 thou/uL (0.11-0.59); #Neutrophils 5.2 thou/uL (1.40-6.50); %Eosinophils 6.4 % (0.0-10.0); %Monocytes 6.8 % (0.0-10.0); %Neutrophils 68.7 % (42.0-75.0); Hemoglobin 9.8 g/dL (12.0-16.0); Mean Corpuscular HGB CONC 30.7 g/dL (32.0-36.0); Mean Corpuscular Hemoglobin 29.6 pg (27.0-31.0); Mean Corpuscular Volume 96.4 fL (78.0-98.0); Mean Platelet Volume 4.8 fL (7.4-10.4); Platelet Count 461 thou/uL (130-400); RBC Distribution Width 14.5 % (11.5-14.5); White Blood Cell (WBC) Count 7.6 thou/uL (4.8-10.8)
[2022-06-16] MEDS: Diazepam 2 MG TAB PO SCH ×2 (06:28→15:36)
[2022-06-16 06:31] LABS: Anion Gap 13 mmol/L (10-20); BUN (Urea Nitrogen) 9 mg/dL (9.8-20.1); Calc. Creatinine Clearance 74 mL/min (70-130); Calcium 8.6 mg/dL (7.8-10.44); Carbon Dioxide 28 mmol/L (23-31); Chloride 99 mmol/L (98-107); Estimated GFR 88; Glucose 107 mg/dL (83-110); Potassium 3.4 mmol/L (3.5-5.1); Sodium 137 mmol/L (136-145)
[2022-06-16] MEDS: Metoclopramide 10 MG/10 ML UDCUP PO SCH ×4 (07:30→20:30)
[2022-06-16] MEDS: Apixaban 5 MG TAB PO SCH ×2 (08:40→20:29)
[2022-06-16] MEDS: Lidocaine 5% Patch TD SCH (14:30)
[2022-06-16] MEDS: Methocarbamol 500 MG TAB PO PRN (19:45)
[2022-06-17] MEDS: LIDOCAINE Patch Removal TOP SCH (01:14)
[2022-06-17] MEDS: hydrOXYzine 25 MG TAB PO PRN (05:20)
[2022-06-17] MEDS: Diazepam 2 MG TAB PO SCH ×2 (06:11→16:25)
[2022-06-17] MEDS: Metoclopramide 10 MG/10 ML UDCUP PO SCH ×4 (08:44→21:29)
[2022-06-17] MEDS: Apixaban 5 MG TAB PO SCH ×2 (08:44→21:29)
[2022-06-17] MEDS: Methocarbamol 500 MG TAB PO PRN ×2 (08:46→21:32)
[2022-06-17] MEDS: Triamterene/Hydrochlorothiazide 37.5 mg/25 mg Tablet PO SCH (08:46)
[2022-06-17] MEDS: Acetaminophen 325 MG TAB PO PRN (08:47)
[2022-06-17] MEDS ORDERED: Milk Of Magnesia 30 ML UDCUP PO PRN (10:17)
[2022-06-17] MEDS ORDERED: Potassium Chloride 20 MEQ TAB PO SCH (11:00)
[2022-06-17] MEDS: Lidocaine 5% Patch TD SCH (14:04)
[2022-06-17] MEDS ORDERED: hydrOXYzine 25 MG TAB PO SCH (21:00)
[2022-06-17] MEDS: Acetaminophen 500 MG TAB PO PRN (21:28)
[2022-06-17] MEDS: hydrOXYzine 25 MG TAB PO SCH (21:29)
[2022-06-18] MEDS: LIDOCAINE Patch Removal TOP SCH (02:47)
[2022-06-18 06:14] LABS: Anion Gap 17 mmol/L (10-20); BUN (Urea Nitrogen) 11 mg/dL (9.8-20.1); Calc. Creatinine Clearance 66 mL/min (70-130); Calcium 8.6 mg/dL (7.8-10.44); Carbon Dioxide 27 mmol/L (23-31); Chloride 98 mmol/L (98-107); Estimated GFR 86; Glucose 97 mg/dL (83-110); Potassium 3.6 mmol/L (3.5-5.1); Sodium 138 mmol/L (136-145)
[2022-06-18] MEDS: Diazepam 2 MG TAB PO SCH ×2 (06:14→16:59)
[2022-06-18] MEDS: hydrOXYzine 25 MG TAB PO SCH ×2 (06:35→20:50)
[2022-06-18] MEDS: Metoclopramide 10 MG/10 ML UDCUP PO SCH ×4 (07:41→20:50)
[2022-06-18] MEDS: Polyethylene Glycol 3350 17 GM Packet PO SCH (09:41)
[2022-06-18] MEDS: Triamterene/Hydrochlorothiazide 37.5 mg/25 mg Tablet PO SCH (09:43)
[2022-06-18] MEDS: Potassium Chloride 20 MEQ TAB PO SCH (09:43)
[2022-06-18] MEDS: Apixaban 5 MG TAB PO SCH ×2 (09:43→20:50)
[2022-06-18] MEDS: Acetaminophen 500 MG TAB PO PRN ×2 (09:43→20:57)
[2022-06-18] MEDS: Lidocaine 5% Patch TD SCH (14:26)
[2022-06-18] MEDS: Methocarbamol 500 MG TAB PO PRN (20:57)
[2022-06-19] MEDS: Propranolol HCl 20 MG TAB PO PRN (02:17)
[2022-06-19] MEDS: LIDOCAINE Patch Removal TOP SCH (02:27)
[2022-06-19 06:21] LABS: #Basophils 0.1 thou/uL (0.0-0.2); #Eosinphils 0.7 thou/uL (0.0-0.7); #Lymphocytes 1.2 thou/uL (1.20-3.40); #Monocytes 0.5 thou/uL (0.11-0.59); #Neutrophils 5.2 thou/uL (1.40-6.50); %Eosinophils 8.8 % (0.0-10.0); %Lymphocytes 15.4 % (21.0-51.0); %Neutrophils 68.8 % (42.0-75.0); Hemoglobin 9.9 g/dL (12.0-16.0); Mean Corpuscular HGB CONC 31.1 g/dL (32.0-36.0); Mean Corpuscular Hemoglobin 29.8 pg (27.0-31.0); Mean Corpuscular Volume 96.1 fL (78.0-98.0); Mean Platelet Volume 4.5 fL (7.4-10.4); Platelet Count 418 thou/uL (130-400); RBC Distribution Width 14.5 % (11.5-14.5); Red Blood Cell (RBC) Count 3.32 mill/uL (4.20-5.40); White Blood Cell (WBC) Count 7.5 thou/uL (4.8-10.8)
[2022-06-19 06:36] LABS: Anion Gap 16 mmol/L (10-20); BUN (Urea Nitrogen) 13 mg/dL (9.8-20.1); Calc. Creatinine Clearance 64 mL/min (70-130); Calcium 8.9 mg/dL (7.8-10.44); Carbon Dioxide 27 mmol/L (23-31); Chloride 99 mmol/L (98-107); Estimated GFR 85; Glucose 101 mg/dL (83-110); Potassium 3.8 mmol/L (3.5-5.1); Sodium 138 mmol/L (136-145)
[2022-06-19] MEDS: Diazepam 2 MG TAB PO SCH ×2 (07:37→15:34)
[2022-06-19] MEDS: Metoclopramide 10 MG/10 ML UDCUP PO SCH ×4 (07:37→21:01)
[2022-06-19] MEDS: Potassium Chloride 20 MEQ TAB PO SCH (08:35)
[2022-06-19] MEDS: Triamterene/Hydrochlorothiazide 37.5 mg/25 mg Tablet PO SCH (08:35)
[2022-06-19] MEDS: hydrOXYzine 25 MG TAB PO SCH ×2 (08:35→21:00)
[2022-06-19] MEDS: Polyethylene Glycol 3350 17 GM Packet PO SCH (08:35)
[2022-06-19] MEDS: Apixaban 5 MG TAB PO SCH ×2 (08:35→21:00)
[2022-06-19] MEDS: Acetaminophen 500 MG TAB PO PRN ×3 (08:49→21:01)
[2022-06-19] MEDS: Methocarbamol 500 MG TAB PO PRN ×2 (12:08→21:00)
[2022-06-19] MEDS: Lidocaine 5% Patch TD SCH (14:35)
[2022-06-20] MEDS: LIDOCAINE Patch Removal TOP SCH (02:22)
[2022-06-20] MEDS: Acetaminophen 500 MG TAB PO PRN ×4 (02:43→22:24)
[2022-06-20] MEDS: Methocarbamol 500 MG TAB PO PRN ×4 (02:44→22:29)
[2022-06-20] MEDS: Diazepam 2 MG TAB PO SCH ×2 (06:16→15:35)
[2022-06-20] MEDS: Apixaban 5 MG TAB PO SCH ×2 (08:43→21:32)
[2022-06-20] MEDS: hydrOXYzine 25 MG TAB PO SCH ×2 (08:43→21:33)
[2022-06-20] MEDS: Potassium Chloride 20 MEQ TAB PO SCH (08:43)
[2022-06-20] MEDS: Metoclopramide 10 MG/10 ML UDCUP PO SCH ×4 (08:43→21:32)
[2022-06-20] MEDS: Triamterene/Hydrochlorothiazide 37.5 mg/25 mg Tablet PO SCH (08:43)
[2022-06-20] MEDS: Polyethylene Glycol 3350 17 GM Packet PO SCH (08:44)
[2022-06-20] MEDS: Lidocaine 5% Patch TD SCH (13:52)
[2022-06-20] MEDS ORDERED: Vancomycin HCl 1.5 GM in Sodium Chloride 0.9% 250 ML 300 ML IVPB SCH (19:30)
[2022-06-20] MEDS ORDERED: Piperacillin/Tazobactam 3.375 GM in Sodium Chloride 0.9% 100 ML IVPB SCH (20:00)
[2022-06-20] MEDS ORDERED: Vancomycin HCl 1.75 GM in Sodium Chloride 0.9% 500 ML IVPB SCH (21:00)
[2022-06-20] MEDS: Vancomycin HCl 750 MG in Sodium Chloride 0.9% 250 ML 250 ML IVPB SCH (22:16)
[2022-06-20] MEDS: Benzonatate 100 MG CAP PO PRN (23:00)
[2022-06-21] MEDS: Piperacillin/Tazobactam 3.375 GM in Sodium Chloride 0.9% 100 ML IVPB SCH ×4 (00:11→23:10)
[2022-06-21] MEDS: Vancomycin HCl 750 MG in Sodium Chloride 0.9% 250 ML 250 ML IVPB SCH (00:12)
[2022-06-21] MEDS: LIDOCAINE Patch Removal TOP SCH (02:25)
[2022-06-21 06:01] LABS: #Eosinphils 0.5 thou/uL (0.0-0.7); #Lymphocytes 1.3 thou/uL (1.20-3.40); #Monocytes 0.6 thou/uL (0.11-0.59); #Neutrophils 3.9 thou/uL (1.40-6.50); %Basophils 0.7 % (0.0-1.0); %Eosinophils 8.1 % (0.0-10.0); %Lymphocytes 20.1 % (21.0-51.0); %Monocytes 8.8 % (0.0-10.0); %Neutrophils 62.4 % (42.0-75.0); Hemoglobin 9.5 g/dL (12.0-16.0); Mean Corpuscular HGB CONC 30.3 g/dL (32.0-36.0); Mean Corpuscular Hemoglobin 29.1 pg (27.0-31.0); Mean Corpuscular Volume 95.8 fl (78.0-98.0); Mean Platelet Volume 4.8 fL (7.4-10.4); Platelet Count 390 thou/uL (130-400); RBC Distribution Width 14.8 % (11.5-14.5); Red Blood Cell (RBC) Count 3.26 mill/uL (4.20-5.40); White Blood Cell (WBC) Count 6.3 thou/uL (4.8-10.8)
[2022-06-21 06:14] LABS: Anion Gap 13 mmol/L (10-20); BUN (Urea Nitrogen) 13 mg/dL (9.8-20.1); Calc. Creatinine Clearance 58 mL/min (70-130); Calcium 8.6 mg/dL (7.8-10.44); Carbon Dioxide 25 mmol/L (23-31); Chloride 103 mmol/L (98-107); Estimated GFR 80; Glucose 94 mg/dL (83-110); Potassium 3.9 mmol/L (3.5-5.1); Sodium 137 mmol/L (136-145)
[2022-06-21] MEDS: Diazepam 2 MG TAB PO SCH ×2 (06:33→15:24)
[2022-06-21] MEDS: Metoclopramide 10 MG/10 ML UDCUP PO SCH ×4 (07:46→21:53)
[2022-06-21] MEDS: hydrOXYzine 25 MG TAB PO SCH ×2 (08:42→21:52)
[2022-06-21] MEDS: Triamterene/Hydrochlorothiazide 37.5 mg/25 mg Tablet PO SCH (08:42)
[2022-06-21] MEDS: Apixaban 5 MG TAB PO SCH ×2 (08:42→21:52)
[2022-06-21] MEDS: Potassium Chloride 20 MEQ TAB PO SCH (08:42)
[2022-06-21] MEDS: Polyethylene Glycol 3350 17 GM Packet PO SCH (08:42)
[2022-06-21] MEDS: Methocarbamol 500 MG TAB PO PRN ×2 (09:28→22:53)
[2022-06-21] MEDS: Acetaminophen 500 MG TAB PO PRN ×2 (09:28→22:54)
[2022-06-21] MEDS ORDERED: Piperacillin/Tazobactam 3.375 GM in Sodium Chloride 0.9% 100 ML IVPB SCH (10:30)
[2022-06-21] MEDS: Lidocaine 5% Patch TD SCH (15:24)
[2022-06-21] MEDS ORDERED: Vancomycin HCl 1 GM in Sodium Chloride 0.9% 250 ML 250 ML IVPB SCH (20:00)
[2022-06-21] MEDS: Benzonatate 100 MG CAP PO PRN (20:36)
[2022-06-21] MEDS: Betamethasone Val 0.1% OINT 15 GM TUBE TOP SCH (21:56)
[2022-06-21] MEDS: Chlorhexidine Gluconate 15 ML UDCUP SSP PRN (22:57)
[2022-06-22] MEDS: LIDOCAINE Patch Removal TOP SCH (02:45)
[2022-06-22 06:32] LABS: Anion Gap 14 mmol/L (10-20); BUN (Urea Nitrogen) 11 mg/dL (9.8-20.1); Calc. Creatinine Clearance 61 mL/min (70-130); Calcium 8.9 mg/dL (7.8-10.44); Carbon Dioxide 26 mmol/L (23-31); Chloride 101 mmol/L (98-107); Estimated GFR 83; Glucose 104 mg/dL (83-110); Potassium 3.6 mmol/L (3.5-5.1); Sodium 137 mmol/L (136-145)
[2022-06-22 06:47] LABS: #Basophils 0.1 thou/uL (0.0-0.2); #Eosinphils 0.4 thou/uL (0.0-0.7); #Monocytes 0.8 thou/uL (0.11-0.59); #Neutrophils 4.1 thou/uL (1.40-6.50); %Basophils 1.1 % (0.0-1.0); %Eosinophils 6.5 % (0.0-10.0); %Lymphocytes 15.2 % (21.0-51.0); %Monocytes 11.8 % (0.0-10.0); %Neutrophils 65.4 % (42.0-75.0); Hemoglobin 9.3 g/dL (12.0-16.0); Mean Corpuscular HGB CONC 30.7 g/dL (32.0-36.0); Mean Corpuscular Hemoglobin 29.8 pg (27.0-31.0); Platelet Count 358 thou/uL (130-400); RBC Distribution Width 14.9 % (11.5-14.5); Red Blood Cell (RBC) Count 3.13 mill/uL (4.20-5.40); White Blood Cell (WBC) Count 6.3 thou/uL (4.8-10.8)
[2022-06-22] MEDS: Potassium Chloride 20 MEQ TAB PO SCH (07:26)
[2022-06-22] MEDS: Metoclopramide 10 MG/10 ML UDCUP PO SCH ×4 (07:27→20:43)
[2022-06-22] MEDS: Diazepam 2 MG TAB PO SCH ×2 (07:27→16:30)
[2022-06-22] MEDS: Piperacillin/Tazobactam 3.375 GM in Sodium Chloride 0.9% 100 ML IVPB SCH ×3 (07:35→23:45)
[2022-06-22] MEDS: Acetaminophen 500 MG TAB PO PRN ×2 (08:47→20:51)
[2022-06-22] MEDS: Methocarbamol 500 MG TAB PO PRN (08:47)
[2022-06-22] MEDS ORDERED: Iopamidol 370 76% 100 ML VIAL ONE (09:00)
[2022-06-22] MEDS: Triamterene/Hydrochlorothiazide 37.5 mg/25 mg Tablet PO SCH (09:48)
[2022-06-22] MEDS: Betamethasone Val 0.1% OINT 15 GM TUBE TOP SCH ×2 (09:49→20:44)
[2022-06-22] MEDS: Polyethylene Glycol 3350 17 GM Packet PO SCH (09:49)
[2022-06-22] MEDS: Apixaban 5 MG TAB PO SCH ×2 (09:49→20:44)
[2022-06-22] MEDS: hydrOXYzine 25 MG TAB PO SCH ×2 (09:49→20:44)
[2022-06-22] MEDS: Lidocaine 5% Patch TD SCH (14:30)
[2022-06-22] MEDS: Chlorhexidine Gluconate 15 ML UDCUP SSP PRN ×2 (16:30→20:51)
[2022-06-22] MEDS: Vancomycin HCl 1 GM in Sodium Chloride 0.9% 250 ML 250 ML IVPB SCH (20:36)
[2022-06-23] MEDS: LIDOCAINE Patch Removal TOP SCH ×2 (02:37→21:20)
[2022-06-23] MEDS: Methocarbamol 500 MG TAB PO PRN ×4 (03:13→20:15)
[2022-06-23 05:52] LABS: #Basophils 0.1 thou/uL (0.0-0.2); #Eosinphils 0.5 thou/uL (0.0-0.7); #Lymphocytes 0.8 thou/uL (1.20-3.40); #Monocytes 0.6 thou/uL (0.11-0.59); %Basophils 0.9 % (0.0-1.0); %Eosinophils 7.8 % (0.0-10.0); %Lymphocytes 11.7 % (21.0-51.0); %Monocytes 8.1 % (0.0-10.0); %Neutrophils 71.4 % (42.0-75.0); Hemoglobin 9.8 g/dL (12.0-16.0); Mean Corpuscular HGB CONC 31.4 g/dL (32.0-36.0); Mean Corpuscular Hemoglobin 29.9 pg (27.0-31.0); Mean Corpuscular Volume 95.3 fl (78.0-98.0); Mean Platelet Volume 5.1 fL (7.4-10.4); Platelet Count 354 thou/uL (130-400); Red Blood Cell (RBC) Count 3.26 mill/uL (4.20-5.40)
[2022-06-23 06:00] LABS: Anion Gap 16 mmol/L (10-20); BUN (Urea Nitrogen) 11 mg/dL (9.8-20.1); Calc. Creatinine Clearance 60 mL/min (70-130); Calcium 9.1 mg/dL (7.8-10.44); Carbon Dioxide 27 mmol/L (23-31); Chloride 98 mmol/L (98-107); Estimated GFR 83; Glucose 103 mg/dL (83-110); Potassium 3.7 mmol/L (3.5-5.1)
[2022-06-23 06:04] LABS: Sodium 137 mmol/L (136-145)
[2022-06-23] MEDS: Diazepam 2 MG TAB PO SCH ×2 (06:45→16:04)
[2022-06-23] MEDS: Metoclopramide 10 MG/10 ML UDCUP PO SCH ×4 (07:28→21:19)
[2022-06-23] MEDS: Potassium Chloride 20 MEQ TAB PO SCH (07:28)
[2022-06-23] MEDS: Vancomycin HCl 1 GM in Sodium Chloride 0.9% 250 ML 250 ML IVPB SCH ×2 (07:29→20:03)
[2022-06-23] MEDS: Piperacillin/Tazobactam 3.375 GM in Sodium Chloride 0.9% 100 ML IVPB SCH ×3 (07:29→23:41)
[2022-06-23] MEDS: Acetaminophen 500 MG TAB PO PRN ×3 (08:26→21:19)
[2022-06-23] MEDS ORDERED: Iopamidol 370 76% 100 ML VIAL ONE (09:00)
[2022-06-23] MEDS: Polyethylene Glycol 3350 17 GM Packet PO SCH (09:28)
[2022-06-23] MEDS: Apixaban 5 MG TAB PO SCH ×2 (09:28→21:19)
[2022-06-23] MEDS: hydrOXYzine 25 MG TAB PO SCH ×2 (09:28→21:18)
[2022-06-23] MEDS: Lidocaine 5% Patch TD SCH (09:28)
[2022-06-23] MEDS: Betamethasone Val 0.1% OINT 15 GM TUBE TOP SCH ×2 (09:30→21:20)
[2022-06-23] MEDS: Chlorhexidine Gluconate 15 ML UDCUP SSP PRN (09:47)
[2022-06-23] MEDS: Benzonatate 100 MG CAP PO PRN (20:15)
[2022-06-24] MEDS: Methocarbamol 500 MG TAB PO PRN ×2 (02:33→21:08)
[2022-06-24] MEDS: Acetaminophen 500 MG TAB PO PRN ×2 (02:34→15:35)
[2022-06-24 05:34] LABS: #Basophils 0.1 thou/uL (0.0-0.2); #Eosinphils 0.7 thou/uL (0.0-0.7); #Lymphocytes 1.1 thou/uL (1.20-3.40); #Monocytes 0.6 thou/uL (0.11-0.59); #Neutrophils 4.3 thou/uL (1.40-6.50); %Basophils 0.9 % (0.0-1.0); %Eosinophils 10.2 % (0.0-10.0); %Lymphocytes 16.3 % (21.0-51.0); %Monocytes 9.3 % (0.0-10.0); %Neutrophils 63.4 % (42.0-75.0); Hemoglobin 9.2 g/dL (12.0-16.0); Mean Corpuscular HGB CONC 30.4 g/dL (32.0-36.0); Mean Corpuscular Hemoglobin 29.4 pg (27.0-31.0); Mean Corpuscular Volume 96.7 fl (78.0-98.0); Mean Platelet Volume 5.1 fL (7.4-10.4); Platelet Count 336 thou/uL (130-400); RBC Distribution Width 15.5 % (11.5-14.5); Red Blood Cell (RBC) Count 3.12 mill/uL (4.20-5.40); White Blood Cell (WBC) Count 6.7 thou/uL (4.8-10.8)
[2022-06-24 05:41] LABS: Anion Gap 14 mmol/L (10-20); BUN (Urea Nitrogen) 12 mg/dL (9.8-20.1); Calc. Creatinine Clearance 62 mL/min (70-130); Calcium 8.9 mg/dL (7.8-10.44); Carbon Dioxide 24 mmol/L (23-31); Chloride 103 mmol/L (98-107); Estimated GFR 84; Glucose 101 mg/dL (83-110); Potassium 3.5 mmol/L (3.5-5.1); Sodium 137 mmol/L (136-145)
[2022-06-24] MEDS: Metoclopramide 10 MG/10 ML UDCUP PO SCH ×4 (07:17→21:06)
[2022-06-24] MEDS: Diazepam 2 MG TAB PO SCH ×2 (07:17→15:37)
[2022-06-24 07:20] LABS: Vancomycin, Trough 21.4 ug/mL
[2022-06-24] MEDS: Piperacillin/Tazobactam 3.375 GM in Sodium Chloride 0.9% 100 ML IVPB SCH ×2 (08:53→15:37)
[2022-06-24] MEDS: Potassium Chloride 20 MEQ TAB PO SCH (08:56)
[2022-06-24] MEDS: hydrOXYzine 25 MG TAB PO SCH ×2 (08:57→21:06)
[2022-06-24] MEDS: Apixaban 5 MG TAB PO SCH ×2 (08:57→21:06)
[2022-06-24] MEDS: Betamethasone Val 0.1% OINT 15 GM TUBE TOP SCH ×2 (08:58→21:53)
[2022-06-24] MEDS: Polyethylene Glycol 3350 17 GM Packet PO SCH (08:58)
[2022-06-24] MEDS: Vancomycin HCl 1 GM in Sodium Chloride 0.9% 250 ML 250 ML IVPB SCH (09:00)
[2022-06-24] MEDS: Lidocaine 5% Patch TD SCH (09:00)
[2022-06-24] MEDS: Chlorhexidine Gluconate 15 ML UDCUP SSP PRN (12:11)
[2022-06-24] MEDS: Benzonatate 100 MG CAP PO PRN ×2 (12:14→19:56)
[2022-06-24] MEDS: Vancomycin HCl 750 MG in Sodium Chloride 0.9% 250 ML 250 ML IVPB SCH (20:55)
[2022-06-24] MEDS: Propranolol HCl 20 MG TAB PO PRN (21:09)
[2022-06-24] MEDS: LIDOCAINE Patch Removal TOP SCH (21:53)
[2022-06-25] MEDS: Piperacillin/Tazobactam 3.375 GM in Sodium Chloride 0.9% 100 ML IVPB SCH ×3 (00:11→15:48)
[2022-06-25] MEDS: Acetaminophen 500 MG TAB PO PRN (03:13)
[2022-06-25] MEDS: Methocarbamol 500 MG TAB PO PRN ×2 (03:15→20:24)
[2022-06-25] MEDS: Benzonatate 100 MG CAP PO PRN ×2 (03:18→20:23)
[2022-06-25 06:29] LABS: #Basophils 0.1 thou/uL (0.0-0.2); #Eosinphils 0.5 thou/uL (0.0-0.7); #Lymphocytes 1.2 thou/uL (1.20-3.40); #Monocytes 0.6 thou/uL (0.11-0.59); #Neutrophils 4.4 thou/uL (1.40-6.50); %Basophils 0.8 % (0.0-1.0); %Lymphocytes 17.5 % (21.0-51.0); %Monocytes 8.6 % (0.0-10.0); Hemoglobin 9.5 g/dL (12.0-16.0); Mean Corpuscular HGB CONC 31.3 g/dL (32.0-36.0); Mean Corpuscular Hemoglobin 29.9 pg (27.0-31.0); Mean Corpuscular Volume 95.5 fl (78.0-98.0); Platelet Count 345 thou/uL (130-400); Red Blood Cell (RBC) Count 3.18 mill/uL (4.20-5.40); White Blood Cell (WBC) Count 6.8 thou/uL (4.8-10.8)
[2022-06-25] MEDS: Diazepam 2 MG TAB PO SCH ×2 (06:29→16:39)
[2022-06-25 06:40] LABS: Anion Gap 14 mmol/L (10-20); BUN (Urea Nitrogen) 9 mg/dL (9.8-20.1); Calc. Creatinine Clearance 67 mL/min (70-130); Carbon Dioxide 26 mmol/L (23-31); Chloride 102 mmol/L (98-107); Estimated GFR 84; Glucose 105 mg/dL (83-110); Potassium 3.7 mmol/L (3.5-5.1); Sodium 138 mmol/L (136-145)
[2022-06-25] MEDS: Metoclopramide 10 MG/10 ML UDCUP PO SCH ×4 (07:40→20:23)
[2022-06-25] MEDS: Polyethylene Glycol 3350 17 GM Packet PO SCH (08:03)
[2022-06-25] MEDS: Lidocaine 5% Patch TD SCH (08:03)
[2022-06-25] MEDS: Apixaban 5 MG TAB PO SCH ×2 (08:03→20:23)
[2022-06-25] MEDS: Potassium Chloride 20 MEQ TAB PO SCH (08:04)
[2022-06-25] MEDS: Triamterene/Hydrochlorothiazide 37.5 mg/25 mg Tablet PO SCH (08:04)
[2022-06-25] MEDS: hydrOXYzine 25 MG TAB PO SCH ×2 (08:04→20:24)
[2022-06-25] MEDS: Betamethasone Val 0.1% OINT 15 GM TUBE TOP SCH ×2 (08:04→20:23)
[2022-06-25] MEDS: Vancomycin HCl 750 MG in Sodium Chloride 0.9% 250 ML 250 ML IVPB SCH (08:05)
[2022-06-25 16:09] LABS: Strep pneumo Urine Ag NEGATIVE (NEGATIVE)
[2022-06-25] MEDS: Ondansetron ODT 4 MG TAB SL PRN (16:57)
[2022-06-25 19:24] LABS: Vancomycin, Trough 18.2 ug/mL
[2022-06-25] MEDS: Chlorhexidine Gluconate 15 ML UDCUP SSP PRN (20:24)
[2022-06-25] MEDS: LIDOCAINE Patch Removal TOP SCH (20:25)
[2022-06-26 06:03] LABS: #Basophils 0.1 thou/uL (0.0-0.2); #Eosinphils 0.5 thou/uL (0.0-0.7); #Lymphocytes 1.3 thou/uL (1.20-3.40); #Monocytes 0.7 thou/uL (0.11-0.59); #Neutrophils 3.7 thou/uL (1.40-6.50); %Eosinophils 7.4 % (0.0-10.0); %Lymphocytes 21.3 % (21.0-51.0); %Monocytes 10.6 % (0.0-10.0); %Neutrophils 59.7 % (42.0-75.0); Hemoglobin 9.7 g/dL (12.0-16.0); Mean Corpuscular HGB CONC 30.8 g/dL (32.0-36.0); Mean Corpuscular Hemoglobin 29.6 pg (27.0-31.0); Mean Corpuscular Volume 96.1 fl (78.0-98.0); Mean Platelet Volume 4.9 fL (7.4-10.4); Platelet Count 355 thou/uL (130-400); RBC Distribution Width 15.3 % (11.5-14.5); Red Blood Cell (RBC) Count 3.29 mill/uL (4.20-5.40); White Blood Cell (WBC) Count 6.1 thou/uL (4.8-10.8)
[2022-06-26 06:12] LABS: Anion Gap 16 mmol/L (10-20); BUN (Urea Nitrogen) 12 mg/dL (9.8-20.1); Calc. Creatinine Clearance 61 mL/min (70-130); Calcium 9.1 mg/dL (7.8-10.44); Carbon Dioxide 28 mmol/L (23-31); Chloride 97 mmol/L (98-107); Estimated GFR 79; Glucose 101 mg/dL (83-110); Sodium 137 mmol/L (136-145)
[2022-06-26] MEDS: Diazepam 2 MG TAB PO SCH ×2 (06:23→17:01)
[2022-06-26] MEDS: Potassium Chloride 20 MEQ TAB PO SCH (07:32)
[2022-06-26] MEDS: Metoclopramide 10 MG/10 ML UDCUP PO SCH ×4 (07:32→20:28)
[2022-06-26] MEDS: hydrOXYzine 25 MG TAB PO SCH ×2 (08:26→20:28)
[2022-06-26] MEDS: Acetaminophen 500 MG TAB PO PRN (08:26)
[2022-06-26] MEDS: Apixaban 5 MG TAB PO SCH ×2 (09:18→20:28)
[2022-06-26] MEDS: Triamterene/Hydrochlorothiazide 37.5 mg/25 mg Tablet PO SCH (09:19)
[2022-06-26] MEDS: Polyethylene Glycol 3350 17 GM Packet PO SCH (09:19)
[2022-06-26] MEDS: Betamethasone Val 0.1% OINT 15 GM TUBE TOP SCH ×2 (09:20→20:28)
[2022-06-26] MEDS: Benzonatate 100 MG CAP PO PRN ×3 (11:10→22:33)
[2022-06-26] MEDS: Lidocaine 5% Patch TD SCH (12:01)
[2022-06-26] MEDS: LIDOCAINE Patch Removal TOP SCH (20:29)
[2022-06-26] MEDS: Chlorhexidine Gluconate 15 ML UDCUP SSP PRN (22:25)
[2022-06-26] MEDS: Methocarbamol 500 MG TAB PO PRN (22:33)
[2022-06-27] MEDS: Acetaminophen 500 MG TAB PO PRN ×3 (01:11→19:12)
[2022-06-27] MEDS: Diazepam 2 MG TAB PO SCH ×2 (06:23→16:43)
[2022-06-27] MEDS: Metoclopramide 10 MG/10 ML UDCUP PO SCH ×4 (07:27→21:51)
[2022-06-27] MEDS: Potassium Chloride 20 MEQ TAB PO SCH (07:27)
[2022-06-27] MEDS: Triamterene/Hydrochlorothiazide 37.5 mg/25 mg Tablet PO SCH (08:24)
[2022-06-27] MEDS: Methocarbamol 500 MG TAB PO PRN ×2 (08:24→21:52)
[2022-06-27] MEDS: hydrOXYzine 25 MG TAB PO SCH ×2 (09:37→21:51)
[2022-06-27] MEDS: Apixaban 5 MG TAB PO SCH ×2 (09:37→21:52)
[2022-06-27] MEDS: Lidocaine 5% Patch TD SCH (09:37)
[2022-06-27] MEDS: Polyethylene Glycol 3350 17 GM Packet PO SCH (09:38)
[2022-06-27] MEDS: Betamethasone Val 0.1% OINT 15 GM TUBE TOP SCH ×2 (09:38→21:52)
[2022-06-27] MEDS ORDERED: hydrOXYzine 25 MG TAB PO PRN (19:39)
[2022-06-27] MEDS ORDERED: GUAIFENESIN SF SOLN 200 MG/10 ML UDCUP PO PRN (19:41)
[2022-06-27] MEDS: Chlorhexidine Gluconate 15 ML UDCUP SSP PRN (21:51)
[2022-06-27] MEDS: LIDOCAINE Patch Removal TOP SCH (21:53)
[2022-06-28] MEDS: Acetaminophen 500 MG TAB PO PRN ×4 (01:42→20:23)
[2022-06-28 05:40] LABS: #Eosinphils 0.4 thou/uL (0.0-0.7); #Lymphocytes 1.2 thou/uL (1.20-3.40); #Monocytes 0.5 thou/uL (0.11-0.59); #Neutrophils 2.5 thou/uL (1.40-6.50); %Basophils 0.8 % (0.0-1.0); %Eosinophils 9.5 % (0.0-10.0); %Monocytes 9.7 % (0.0-10.0); Hemoglobin 9.7 g/dL (12.0-16.0); Mean Corpuscular HGB CONC 31.7 g/dL (32.0-36.0); Mean Corpuscular Hemoglobin 29.8 pg (27.0-31.0); Mean Corpuscular Volume 94.3 fl (78.0-98.0); Mean Platelet Volume 4.7 fL (7.4-10.4); Platelet Count 345 thou/uL (130-400); RBC Distribution Width 15.1 % (11.5-14.5); Red Blood Cell (RBC) Count 3.24 mill/uL (4.20-5.40); White Blood Cell (WBC) Count 4.7 thou/uL (4.8-10.8)
[2022-06-28 05:57] LABS: Anion Gap 13 mmol/L (10-20); BUN (Urea Nitrogen) 11 mg/dL (9.8-20.1); Calc. Creatinine Clearance 67 mL/min (70-130); Calcium 8.9 mg/dL (7.8-10.44); Carbon Dioxide 27 mmol/L (23-31); Chloride 100 mmol/L (98-107); Estimated GFR 84; Glucose 91 mg/dL (83-110); Potassium 3.9 mmol/L (3.5-5.1); Sodium 136 mmol/L (136-145)
[2022-06-28] MEDS: Diazepam 2 MG TAB PO SCH ×2 (06:05→16:17)
[2022-06-28] MEDS: Metoclopramide 10 MG/10 ML UDCUP PO SCH ×4 (07:23→20:21)
[2022-06-28] MEDS: Apixaban 5 MG TAB PO SCH ×2 (08:35→20:22)
[2022-06-28] MEDS: Potassium Chloride 20 MEQ TAB PO SCH (08:35)
[2022-06-28] MEDS: Lidocaine 5% Patch TD SCH (08:35)
[2022-06-28] MEDS: Triamterene/Hydrochlorothiazide 37.5 mg/25 mg Tablet PO SCH (08:35)
[2022-06-28] MEDS: hydrOXYzine 25 MG TAB PO SCH ×2 (08:35→20:22)
[2022-06-28] MEDS: Betamethasone Val 0.1% OINT 15 GM TUBE TOP SCH ×2 (08:36→20:30)
[2022-06-28] MEDS: Methocarbamol 500 MG TAB PO PRN ×3 (08:44→23:21)
[2022-06-28] MEDS: Polyethylene Glycol 3350 17 GM Packet PO SCH (08:46)
[2022-06-28] MEDS: Benzonatate 100 MG CAP PO PRN (20:21)
[2022-06-28] MEDS: LIDOCAINE Patch Removal TOP SCH (20:25)
[2022-06-29] MEDS: Acetaminophen 500 MG TAB PO PRN ×4 (03:58→21:19)
[2022-06-29] MEDS: Diazepam 2 MG TAB PO SCH ×2 (05:16→16:30)
[2022-06-29] MEDS: Benzonatate 100 MG CAP PO PRN (05:17)
[2022-06-29] MEDS: Triamterene/Hydrochlorothiazide 37.5 mg/25 mg Tablet PO SCH (09:32)
[2022-06-29] MEDS: hydrOXYzine 25 MG TAB PO SCH ×2 (09:33→21:20)
[2022-06-29] MEDS: Metoclopramide 10 MG/10 ML UDCUP PO SCH ×4 (09:33→21:19)
[2022-06-29] MEDS: Potassium Chloride 20 MEQ TAB PO SCH (09:33)
[2022-06-29] MEDS: Apixaban 5 MG TAB PO SCH ×2 (09:33→21:20)
[2022-06-29] MEDS: Lidocaine 5% Patch TD SCH (09:48)
[2022-06-29] MEDS: Betamethasone Val 0.1% OINT 15 GM TUBE TOP SCH ×2 (09:48→21:21)
[2022-06-29] MEDS: Polyethylene Glycol 3350 17 GM Packet PO SCH (09:48)
[2022-06-29] MEDS: Methocarbamol 500 MG TAB PO PRN ×2 (14:41→21:20)
[2022-06-29] MEDS: LIDOCAINE Patch Removal TOP SCH (21:21)
[2022-06-29] MEDS: Chlorhexidine Gluconate 15 ML UDCUP SSP PRN (21:32)
[2022-06-30] MEDS: Acetaminophen 500 MG TAB PO PRN ×3 (04:29→20:36)
[2022-06-30] MEDS: Diazepam 2 MG TAB PO SCH ×2 (05:53→16:22)
[2022-06-30] MEDS: Methocarbamol 500 MG TAB PO PRN ×2 (08:37→20:35)
[2022-06-30] MEDS: Lidocaine 5% Patch TD SCH (08:37)
[2022-06-30] MEDS: Polyethylene Glycol 3350 17 GM Packet PO SCH (08:39)
[2022-06-30] MEDS: Metoclopramide 10 MG/10 ML UDCUP PO SCH ×4 (08:40→20:35)
[2022-06-30] MEDS: Apixaban 5 MG TAB PO SCH ×2 (08:40→20:36)
[2022-06-30] MEDS: Triamterene/Hydrochlorothiazide 37.5 mg/25 mg Tablet PO SCH (08:40)
[2022-06-30] MEDS: Potassium Chloride 20 MEQ TAB PO SCH (08:40)
[2022-06-30] MEDS: hydrOXYzine 25 MG TAB PO SCH ×2 (08:40→20:35)
[2022-06-30] MEDS: Betamethasone Val 0.1% OINT 15 GM TUBE TOP SCH ×2 (08:41→20:37)
[2022-06-30] MEDS: Propranolol HCl 20 MG TAB PO SCH (20:35)
[2022-06-30] MEDS: LIDOCAINE Patch Removal TOP SCH (20:37)
[2022-06-30] MEDS: Benzonatate 100 MG CAP PO PRN (21:38)
[2022-07-01] MEDS: Diazepam 2 MG TAB PO SCH ×2 (05:45→16:33)
[2022-07-01 05:47] LABS: #Basophils 0.1 thou/uL (0.0-0.2); #Eosinphils 0.3 thou/uL (0.0-0.7); #Lymphocytes 1.4 thou/uL (1.20-3.40); #Monocytes 0.6 thou/uL (0.11-0.59); #Neutrophils 2.8 thou/uL (1.40-6.50); %Basophils 1.3 % (0.0-1.0); %Eosinophils 6.7 % (0.0-10.0); %Lymphocytes 26.3 % (21.0-51.0); %Monocytes 11.8 % (0.0-10.0); Hemoglobin 10.4 g/dL (12.0-16.0); Mean Corpuscular HGB CONC 30.8 g/dL (32.0-36.0); Mean Platelet Volume 4.9 fL (7.4-10.4); Platelet Count 374 thou/uL (130-400); RBC Distribution Width 15.1 % (11.5-14.5); Red Blood Cell (RBC) Count 3.59 mill/uL (4.20-5.40); White Blood Cell (WBC) Count 5.2 thou/uL (4.8-10.8)
[2022-07-01 05:59] LABS: Anion Gap 12 mmol/L (10-20); BUN (Urea Nitrogen) 10 mg/dL (9.8-20.1); Calc. Creatinine Clearance 65 mL/min (70-130); Calcium 9.2 mg/dL (7.8-10.44); Carbon Dioxide 28 mmol/L (23-31); Chloride 99 mmol/L (98-107); Estimated GFR 83; Glucose 99 mg/dL (83-110); Potassium 3.4 mmol/L (3.5-5.1); Sodium 136 mmol/L (136-145)
[2022-07-01] MEDS: Metoclopramide 10 MG/10 ML UDCUP PO SCH (07:50)
[2022-07-01] MEDS: Potassium Chloride 20 MEQ TAB PO SCH (07:51)
[2022-07-01] MEDS: Betamethasone Val 0.1% OINT 15 GM TUBE TOP SCH ×2 (08:27→21:06)
[2022-07-01] MEDS: Triamterene/Hydrochlorothiazide 37.5 mg/25 mg Tablet PO SCH (08:27)
[2022-07-01] MEDS: Propranolol HCl 20 MG TAB PO SCH ×2 (08:27→21:06)
[2022-07-01] MEDS: Benzonatate 100 MG CAP PO PRN ×2 (08:27→21:06)
[2022-07-01] MEDS: Apixaban 5 MG TAB PO SCH ×2 (08:28→21:06)
[2022-07-01] MEDS: hydrOXYzine 25 MG TAB PO SCH ×2 (08:28→21:04)
[2022-07-01] MEDS: Lidocaine 5% Patch TD SCH (08:31)
[2022-07-01] MEDS: Polyethylene Glycol 3350 17 GM Packet PO SCH (08:31)
[2022-07-01] MEDS ORDERED: hydrOXYzine 25 MG TAB PO PRN (09:43)
[2022-07-01] MEDS ORDERED: Escitalopram Oxalate 10 mg Tablet PO SCH (09:45)
[2022-07-01] MEDS: Methocarbamol 500 MG TAB PO PRN ×2 (14:24→21:05)
[2022-07-01] MEDS: Acetaminophen 500 MG TAB PO PRN (21:05)
[2022-07-01] MEDS: LIDOCAINE Patch Removal TOP SCH (21:07)
[2022-07-02] MEDS: Diazepam 2 MG TAB PO SCH ×2 (05:58→16:51)
[2022-07-02] MEDS: Potassium Chloride 20 MEQ TAB PO SCH (08:02)
[2022-07-02] MEDS: Apixaban 5 MG TAB PO SCH ×2 (08:02→20:03)
[2022-07-02] MEDS: Lidocaine 5% Patch TD SCH (08:03)
[2022-07-02] MEDS: Betamethasone Val 0.1% OINT 15 GM TUBE TOP SCH ×2 (08:03→20:03)
[2022-07-02] MEDS: Escitalopram Oxalate 10 mg Tablet PO SCH (08:03)
[2022-07-02] MEDS: Propranolol HCl 20 MG TAB PO SCH ×2 (08:03→17:42)
[2022-07-02] MEDS: Triamterene/Hydrochlorothiazide 37.5 mg/25 mg Tablet PO SCH (08:03)
[2022-07-02] MEDS: Polyethylene Glycol 3350 17 GM Packet PO SCH (08:12)
[2022-07-02] MEDS: Methocarbamol 500 MG TAB PO PRN ×2 (10:08→20:04)
[2022-07-02] MEDS: Acetaminophen 500 MG TAB PO PRN (10:09)
[2022-07-02] MEDS: guaiFENesin ER 600 MG TAB PO SCH ×2 (10:11→20:03)
[2022-07-02] MEDS: hydrOXYzine 25 MG TAB PO SCH (20:04)
[2022-07-02] MEDS: LIDOCAINE Patch Removal TOP SCH (20:04)
[2022-07-03] MEDS: Acetaminophen 500 MG TAB PO PRN (02:47)
[2022-07-03] MEDS: Diazepam 2 MG TAB PO SCH ×2 (06:15→16:05)
[2022-07-03] MEDS: Propranolol HCl 20 MG TAB PO SCH ×2 (06:15→17:33)
[2022-07-03] MEDS: Betamethasone Val 0.1% OINT 15 GM TUBE TOP SCH ×2 (08:25→21:44)
[2022-07-03] MEDS: Polyethylene Glycol 3350 17 GM Packet PO SCH (08:25)
[2022-07-03] MEDS: Lidocaine 5% Patch TD SCH (08:26)
[2022-07-03] MEDS: Potassium Chloride 20 MEQ TAB PO SCH (08:26)
[2022-07-03] MEDS: guaiFENesin ER 600 MG TAB PO SCH ×2 (08:26→21:41)
[2022-07-03] MEDS: Apixaban 5 MG TAB PO SCH ×2 (08:26→21:41)
[2022-07-03] MEDS: Triamterene/Hydrochlorothiazide 37.5 mg/25 mg Tablet PO SCH (08:26)
[2022-07-03] MEDS: Escitalopram Oxalate 10 mg Tablet PO SCH (08:27)
[2022-07-03] MEDS: Methocarbamol 500 MG TAB PO PRN ×2 (09:28→21:41)
[2022-07-03] MEDS: Ondansetron ODT 4 MG TAB SL PRN (12:33)
[2022-07-03] MEDS: hydrOXYzine 25 MG TAB PO SCH (21:40)
[2022-07-03] MEDS: LIDOCAINE Patch Removal TOP SCH (21:45)
[2022-07-04 05:50] LABS: #Basophils 0.1 thou/uL (0.0-0.2); #Eosinphils 0.2 thou/uL (0.0-0.7); #Lymphocytes 1.4 thou/uL (1.20-3.40); #Monocytes 0.6 thou/uL (0.11-0.59); #Neutrophils 3.4 thou/uL (1.40-6.50); %Basophils 1.5 % (0.0-1.0); %Eosinophils 3.2 % (0.0-10.0); %Lymphocytes 24.9 % (21.0-51.0); %Monocytes 10.5 % (0.0-10.0); %Neutrophils 60.1 % (42.0-75.0); Mean Corpuscular HGB CONC 31.5 g/dL (32.0-36.0); Mean Corpuscular Hemoglobin 29.3 pg (27.0-31.0); Mean Platelet Volume 4.8 fL (7.4-10.4); Platelet Count 363 thou/uL (130-400); RBC Distribution Width 15.3 % (11.5-14.5); Red Blood Cell (RBC) Count 3.74 mill/uL (4.20-5.40); White Blood Cell (WBC) Count 5.7 thou/uL (4.8-10.8)
[2022-07-04 06:08] LABS: Anion Gap 15 mmol/L (10-20); BUN (Urea Nitrogen) 10 mg/dL (9.8-20.1); Calc. Creatinine Clearance 58 mL/min (70-130); Calcium 9.4 mg/dL (7.8-10.44); Carbon Dioxide 24 mmol/L (23-31); Chloride 96 mmol/L (98-107); Estimated GFR 83; Glucose 98 mg/dL (83-110); Potassium 3.4 mmol/L (3.5-5.1); Sodium 132 mmol/L (136-145)
[2022-07-04] MEDS: Acetaminophen 500 MG TAB PO PRN ×2 (06:35→23:58)
[2022-07-04] MEDS: Propranolol HCl 20 MG TAB PO SCH ×2 (06:36→17:59)
[2022-07-04] MEDS: Diazepam 2 MG TAB PO SCH ×2 (06:39→16:43)
[2022-07-04] MEDS: Methocarbamol 500 MG TAB PO PRN ×2 (08:31→20:50)
[2022-07-04] MEDS: Polyethylene Glycol 3350 17 GM Packet PO SCH (08:32)
[2022-07-04] MEDS: guaiFENesin ER 600 MG TAB PO SCH ×2 (08:32→20:50)
[2022-07-04] MEDS: Betamethasone Val 0.1% OINT 15 GM TUBE TOP SCH ×2 (08:32→20:51)
[2022-07-04] MEDS: Triamterene/Hydrochlorothiazide 37.5 mg/25 mg Tablet PO SCH (08:33)
[2022-07-04] MEDS: Apixaban 5 MG TAB PO SCH ×2 (08:33→20:48)
[2022-07-04] MEDS: Lidocaine 5% Patch TD SCH (08:33)
[2022-07-04] MEDS: Potassium Chloride 20 MEQ TAB PO SCH ×2 (16:47→18:40)
[2022-07-04] MEDS: Ondansetron ODT 4 MG TAB SL PRN (17:33)
[2022-07-04] MEDS: Escitalopram Oxalate 10 mg Tablet PO SCH (20:48)
[2022-07-04] MEDS: hydrOXYzine 25 MG TAB PO SCH (20:48)
[2022-07-04] MEDS: LIDOCAINE Patch Removal TOP SCH (20:54)
[2022-07-05] MEDS: Propranolol HCl 20 MG TAB PO SCH ×2 (06:13→17:43)
[2022-07-05] MEDS: Apixaban 5 MG TAB PO SCH ×2 (08:21→21:09)
[2022-07-05] MEDS: Lidocaine 5% Patch TD SCH (08:21)
[2022-07-05] MEDS: guaiFENesin ER 600 MG TAB PO SCH ×2 (08:21→21:11)
[2022-07-05] MEDS: Polyethylene Glycol 3350 17 GM Packet PO SCH (08:21)
[2022-07-05] MEDS: Betamethasone Val 0.1% OINT 15 GM TUBE TOP SCH ×2 (08:21→21:09)
[2022-07-05] MEDS: Diazepam 2 MG TAB PO SCH ×2 (08:21→15:57)
[2022-07-05] MEDS: Triamterene/Hydrochlorothiazide 37.5 mg/25 mg Tablet PO SCH (08:21)
[2022-07-05] MEDS: Acetaminophen 500 MG TAB PO PRN ×2 (08:34→23:05)
[2022-07-05] MEDS: Mag-Al Plus 1200 MG/1200 MG/120 MG/30 ML UDCUP PO PRN (16:45)
[2022-07-05] MEDS ORDERED: Potassium Bicarbonate/Cit Ac 20 MEQ TAB PO SCH (17:00)
[2022-07-05] MEDS: Potassium Bicarbonate/Cit Ac 25 MEQ TAB PO SCH (17:51)
[2022-07-05] MEDS: Sodium Chloride 0.65% Nasal 44 ML BOT EA NARE PRN (20:26)
[2022-07-05] MEDS: Ondansetron ODT 4 MG TAB SL PRN (20:27)
[2022-07-05] MEDS: Escitalopram Oxalate 10 mg Tablet PO SCH (21:10)
[2022-07-05] MEDS: Methocarbamol 500 MG TAB PO PRN (21:11)
[2022-07-05] MEDS: hydrOXYzine 25 MG TAB PO SCH (21:11)
[2022-07-05] MEDS: LIDOCAINE Patch Removal TOP SCH (21:12)
[2022-07-06] MEDS: Propranolol HCl 20 MG TAB PO SCH ×2 (05:56→17:14)
[2022-07-06] MEDS: guaiFENesin ER 600 MG TAB PO SCH ×2 (07:38→20:49)
[2022-07-06] MEDS: Diazepam 2 MG TAB PO SCH ×2 (07:38→15:42)
[2022-07-06] MEDS: Apixaban 5 MG TAB PO SCH ×2 (07:38→20:48)
[2022-07-06] MEDS: Betamethasone Val 0.1% OINT 15 GM TUBE TOP SCH ×2 (07:39→20:48)
[2022-07-06] MEDS: Mag-Al Plus 1200 MG/1200 MG/120 MG/30 ML UDCUP PO PRN ×2 (07:39→17:14)
[2022-07-06] MEDS: Lidocaine 5% Patch TD SCH (07:39)
[2022-07-06] MEDS: Polyethylene Glycol 3350 17 GM Packet PO SCH (07:39)
[2022-07-06] MEDS: Acetaminophen 500 MG TAB PO PRN (09:29)
[2022-07-06] MEDS: Potassium Bicarbonate/Cit Ac 25 MEQ TAB PO SCH (17:14)
[2022-07-06] MEDS: Escitalopram Oxalate 10 mg Tablet PO SCH (20:48)
[2022-07-06] MEDS: Methocarbamol 500 MG TAB PO PRN (20:49)
[2022-07-06] MEDS: hydrOXYzine 25 MG TAB PO SCH (20:49)
[2022-07-06] MEDS: LIDOCAINE Patch Removal TOP SCH (20:51)
[2022-07-06] MEDS: Chlorhexidine Gluconate 15 ML UDCUP SSP PRN (20:51)
[2022-07-06] MEDS: Benzonatate 100 MG CAP PO PRN (22:28)
[2022-07-07] MEDS: Propranolol HCl 20 MG TAB PO SCH ×2 (05:43→17:45)
[2022-07-07] MEDS: Benzonatate 100 MG CAP PO PRN ×2 (05:43→17:50)
[2022-07-07] MEDS: Acetaminophen 500 MG TAB PO PRN ×2 (05:44→17:46)
[2022-07-07] MEDS: Diazepam 2 MG TAB PO SCH ×2 (06:31→15:33)
[2022-07-07] MEDS: Betamethasone Val 0.1% OINT 15 GM TUBE TOP SCH ×2 (09:14→21:00)
[2022-07-07] MEDS: Apixaban 5 MG TAB PO SCH ×2 (09:15→21:01)
[2022-07-07] MEDS: Polyethylene Glycol 3350 17 GM Packet PO SCH (09:15)
[2022-07-07] MEDS: guaiFENesin ER 600 MG TAB PO SCH ×2 (09:15→21:01)
[2022-07-07 09:17] LABS: #Eosinphils 0.1 thou/uL (0.0-0.7); #Lymphocytes 1.4 thou/uL (1.20-3.40); #Monocytes 0.9 thou/uL (0.11-0.59); #Neutrophils 4.5 thou/uL (1.40-6.50); %Basophils 0.7 % (0.0-1.0); %Eosinophils 0.9 % (0.0-10.0); %Lymphocytes 20.1 % (21.0-51.0); %Monocytes 13.1 % (0.0-10.0); %Neutrophils 65.3 % (42.0-75.0); Hemoglobin 11.1 g/dL (12.0-16.0); Mean Corpuscular HGB CONC 31.1 g/dL (32.0-36.0); Mean Corpuscular Hemoglobin 29.3 pg (27.0-31.0); Mean Platelet Volume 5.2 fL (7.4-10.4); Platelet Count 379 10x3/uL (130-400); Red Blood Cell (RBC) Count 3.79 mill/uL (4.20-5.40); White Blood Cell (WBC) Count 6.8 10x3/uL (4.8-10.8)
[2022-07-07] MEDS: Lidocaine 5% Patch TD SCH ×2 (09:17→14:40)
[2022-07-07 09:27] LABS: Anion Gap 12 mmol/L (10-20); BUN (Urea Nitrogen) 12 mg/dL (9.8-20.1); Calc. Creatinine Clearance 49 mL/min (70-130); Calcium 9.2 mg/dL (7.8-10.44); Carbon Dioxide 28 mmol/L (23-31); Chloride 92 mmol/L (98-107); Estimated GFR 70; Glucose 106 mg/dL (83-110); Sodium 128 mmol/L (136-145)
[2022-07-07] MEDS: Potassium Bicarbonate/Cit Ac 25 MEQ TAB PO SCH (17:44)
[2022-07-07] MEDS: Sodium Chloride 0.65% Nasal 44 ML BOT EA NARE PRN (17:50)
[2022-07-07] MEDS: Escitalopram Oxalate 10 mg Tablet PO SCH (21:01)
[2022-07-07] MEDS: hydrOXYzine 25 MG TAB PO SCH (21:02)
[2022-07-07] MEDS: LIDOCAINE Patch Removal TOP SCH (21:03)
[2022-07-07] MEDS: Methocarbamol 500 MG TAB PO PRN (21:04)
[2022-07-08] MEDS: Acetaminophen 500 MG TAB PO PRN ×2 (04:06→22:43)
[2022-07-08] MEDS: Diazepam 2 MG TAB PO SCH ×2 (06:03→16:26)
[2022-07-08] MEDS: Propranolol HCl 20 MG TAB PO SCH ×2 (06:03→18:14)
[2022-07-08 07:02] LABS: Anion Gap 12 mmol/L (10-20); BUN (Urea Nitrogen) 10 mg/dL (9.8-20.1); Calc. Creatinine Clearance 64 mL/min (70-130); Calcium 9.2 mg/dL (7.8-10.44); Carbon Dioxide 29 mmol/L (23-31); Chloride 92 mmol/L (98-107); Estimated GFR 86; Glucose 102 mg/dL (83-110); Sodium 129 mmol/L (136-145)
[2022-07-08] MEDS: Polyethylene Glycol 3350 17 GM Packet PO SCH (09:10)
[2022-07-08] MEDS: Betamethasone Val 0.1% OINT 15 GM TUBE TOP SCH ×2 (09:10→20:30)
[2022-07-08] MEDS: guaiFENesin ER 600 MG TAB PO SCH ×2 (10:14→20:30)
[2022-07-08] MEDS: Apixaban 5 MG TAB PO SCH ×2 (10:14→20:30)
[2022-07-08] MEDS: Lidocaine 5% Patch TD SCH (10:14)
[2022-07-08] MEDS: Benzonatate 100 MG CAP PO PRN (10:43)
[2022-07-08] MEDS: Sodium Chloride 0.65% Nasal 44 ML BOT EA NARE PRN (18:14)
[2022-07-08] MEDS: Potassium Bicarbonate/Cit Ac 25 MEQ TAB PO SCH (18:14)
[2022-07-08] MEDS: Chlorhexidine Gluconate 15 ML UDCUP SSP PRN (18:14)
[2022-07-08] MEDS: hydrOXYzine 25 MG TAB PO SCH (20:31)
[2022-07-08] MEDS: Escitalopram Oxalate 10 mg Tablet PO SCH (20:31)
[2022-07-08] MEDS: Methocarbamol 500 MG TAB PO PRN (20:32)
[2022-07-08] MEDS: LIDOCAINE Patch Removal TOP SCH (20:46)
[2022-07-09] MEDS: Propranolol HCl 20 MG TAB PO SCH ×2 (05:53→17:41)
[2022-07-09] MEDS: Diazepam 2 MG TAB PO SCH ×2 (06:00→15:40)
[2022-07-09 06:04] VITALS: BMI 27.2
[2022-07-09 07:01] LABS: Anion Gap 13 mmol/L (10-20); BUN (Urea Nitrogen) 12 mg/dL (9.8-20.1); Calc. Creatinine Clearance 64 mL/min (70-130); Calcium 9.2 mg/dL (7.8-10.44); Carbon Dioxide 28 mmol/L (23-31); Chloride 93 mmol/L (98-107); Estimated GFR 85; Glucose 99 mg/dL (83-110); Potassium 3.7 mmol/L (3.5-5.1); Sodium 130 mmol/L (136-145)
[2022-07-09] MEDS: Mag-Al Plus 1200 MG/1200 MG/120 MG/30 ML UDCUP PO PRN (07:03)
[2022-07-09] MEDS: Betamethasone Val 0.1% OINT 15 GM TUBE TOP SCH ×2 (09:48→21:00)
[2022-07-09] MEDS: Apixaban 5 MG TAB PO SCH ×2 (09:48→21:02)
[2022-07-09] MEDS: Polyethylene Glycol 3350 17 GM Packet PO SCH (09:49)
[2022-07-09] MEDS: guaiFENesin ER 600 MG TAB PO SCH ×2 (09:49→21:01)
[2022-07-09] MEDS: Lidocaine 5% Patch TD SCH (09:49)
[2022-07-09] MEDS: Chlorhexidine Gluconate 15 ML UDCUP SSP PRN ×2 (09:49→21:31)
[2022-07-09] MEDS: Potassium Bicarbonate/Cit Ac 25 MEQ TAB PO SCH (17:41)
[2022-07-09] MEDS: Escitalopram Oxalate 10 mg Tablet PO SCH (21:01)
[2022-07-09] MEDS: hydrOXYzine 25 MG TAB PO SCH (21:01)
[2022-07-09] MEDS: Methocarbamol 500 MG TAB PO PRN (21:02)
[2022-07-09] MEDS: LIDOCAINE Patch Removal TOP SCH (21:05)
[2022-07-09] MEDS: Loperamide HCl 2 MG CAP PO PRN (21:27)
[2022-07-10] MEDS: Mag-Al Plus 1200 MG/1200 MG/120 MG/30 ML UDCUP PO PRN ×2 (00:01→21:14)
[2022-07-10] MEDS: Diazepam 2 MG TAB PO SCH ×2 (05:49→16:32)
[2022-07-10] MEDS: Propranolol HCl 20 MG TAB PO SCH ×2 (05:49→18:34)
[2022-07-10 06:05] LABS: #Basophils 0.1 thou/uL (0.0-0.2); #Eosinphils 0.1 thou/uL (0.0-0.7); #Lymphocytes 1.4 thou/uL (1.20-3.40); #Monocytes 0.6 thou/uL (0.11-0.59); #Neutrophils 2.4 thou/uL (1.40-6.50); %Basophils 1.5 % (0.0-1.0); %Eosinophils 3.1 % (0.0-10.0); %Lymphocytes 30.9 % (21.0-51.0); %Monocytes 13.7 % (0.0-10.0); %Neutrophils 50.8 % (42.0-75.0); Hemoglobin 10.2 g/dL (12.0-16.0); Mean Corpuscular HGB CONC 30.8 g/dL (32.0-36.0); Mean Corpuscular Hemoglobin 29.1 pg (27.0-31.0); Mean Corpuscular Volume 94.6 fl (78.0-98.0); Mean Platelet Volume 5.2 fL (7.4-10.4); Platelet Count 344 10x3/uL (130-400); Red Blood Cell (RBC) Count 3.52 mill/uL (4.20-5.40); White Blood Cell (WBC) Count 4.7 10x3/uL (4.8-10.8)
[2022-07-10 06:16] LABS: Anion Gap 13 mmol/L (10-20); BUN (Urea Nitrogen) 10 mg/dL (9.8-20.1); Calc. Creatinine Clearance 62 mL/min (70-130); Calcium 9.4 mg/dL (7.8-10.44); Carbon Dioxide 28 mmol/L (23-31); Chloride 96 mmol/L (98-107); Estimated GFR 84; Glucose 98 mg/dL (83-110)
[2022-07-10 06:48] LABS: Sodium 133 mmol/L (136-145)
[2022-07-10] MEDS: guaiFENesin ER 600 MG TAB PO SCH ×2 (09:15→20:46)
[2022-07-10] MEDS: Apixaban 5 MG TAB PO SCH ×2 (09:15→20:46)
[2022-07-10] MEDS: NIFEdipine XL 30 MG TAB PO SCH (09:15)
[2022-07-10] MEDS: Betamethasone Val 0.1% OINT 15 GM TUBE TOP SCH ×2 (09:16→20:46)
[2022-07-10] MEDS: Lidocaine 5% Patch TD SCH (09:16)
[2022-07-10] MEDS: Polyethylene Glycol 3350 17 GM Packet PO SCH (09:16)
[2022-07-10] MEDS: Potassium Bicarbonate/Cit Ac 25 MEQ TAB PO SCH (17:22)
[2022-07-10] MEDS: Escitalopram Oxalate 10 mg Tablet PO SCH (20:46)
[2022-07-10] MEDS: hydrOXYzine 25 MG TAB PO SCH (20:46)
[2022-07-10] MEDS: LIDOCAINE Patch Removal TOP SCH (20:47)
[2022-07-10] MEDS: Acetaminophen 500 MG TAB PO PRN (21:14)
[2022-07-11] MEDS: Propranolol HCl 20 MG TAB PO SCH ×2 (06:02→18:13)
[2022-07-11] MEDS: Lidocaine 5% Patch TD SCH (08:03)
[2022-07-11] MEDS: Betamethasone Val 0.1% OINT 15 GM TUBE TOP SCH ×2 (08:03→20:28)
[2022-07-11] MEDS: NIFEdipine XL 30 MG TAB PO SCH (08:04)
[2022-07-11] MEDS: Polyethylene Glycol 3350 17 GM Packet PO SCH (08:05)
[2022-07-11] MEDS: Apixaban 5 MG TAB PO SCH ×2 (08:05→20:29)
[2022-07-11] MEDS: guaiFENesin ER 600 MG TAB PO SCH ×2 (08:05→20:29)
[2022-07-11] MEDS: Acetaminophen 500 MG TAB PO PRN ×2 (09:23→21:28)
[2022-07-11] MEDS: Potassium Bicarbonate/Cit Ac 25 MEQ TAB PO SCH (18:13)
[2022-07-11] MEDS: hydrOXYzine 25 MG TAB PO SCH (20:29)
[2022-07-11] MEDS: LIDOCAINE Patch Removal TOP SCH (20:29)
[2022-07-11] MEDS: Escitalopram Oxalate 10 mg Tablet PO SCH (20:29)
[2022-07-11] MEDS: Chlorhexidine Gluconate 15 ML UDCUP SSP PRN (20:44)
[2022-07-11] MEDS: Mag-Al Plus 1200 MG/1200 MG/120 MG/30 ML UDCUP PO PRN (21:28)
[2022-07-12] MEDS: Propranolol HCl 20 MG TAB PO SCH ×2 (06:24→17:28)
[2022-07-12] MEDS: Diazepam 2 MG TAB PO SCH ×2 (06:29→16:21)
[2022-07-12] MEDS: Apixaban 5 MG TAB PO SCH ×2 (07:50→20:43)
[2022-07-12] MEDS: guaiFENesin ER 600 MG TAB PO SCH ×2 (07:50→20:43)
[2022-07-12] MEDS: NIFEdipine XL 30 MG TAB PO SCH (07:50)
[2022-07-12] MEDS: Betamethasone Val 0.1% OINT 15 GM TUBE TOP SCH ×2 (07:51→20:43)
[2022-07-12] MEDS: Lidocaine 5% Patch TD SCH (07:51)
[2022-07-12] MEDS: Polyethylene Glycol 3350 17 GM Packet PO SCH (07:54)
[2022-07-12] MEDS: Senokot S 8.6-50 MG TAB PO PRN (07:55)
[2022-07-12] MEDS: Methocarbamol 500 MG TAB PO PRN (09:14)
[2022-07-12] MEDS: Acetaminophen 500 MG TAB PO PRN ×2 (09:56→19:49)
[2022-07-12] MEDS: Potassium Bicarbonate/Cit Ac 25 MEQ TAB PO SCH (17:29)
[2022-07-12] MEDS: Escitalopram Oxalate 10 mg Tablet PO SCH (20:42)
[2022-07-12] MEDS: hydrOXYzine 25 MG TAB PO SCH (20:42)
[2022-07-12] MEDS: LIDOCAINE Patch Removal TOP SCH (20:43)
[2022-07-12] MEDS: Chlorhexidine Gluconate 15 ML UDCUP SSP PRN (20:51)
[2022-07-12] MEDS: Mag-Al Plus 1200 MG/1200 MG/120 MG/30 ML UDCUP PO PRN (20:51)
[2022-07-13] MEDS: Propranolol HCl 20 MG TAB PO SCH ×2 (05:51→17:53)
[2022-07-13] MEDS: Diazepam 2 MG TAB PO SCH ×2 (05:52→16:00)
[2022-07-13 06:15] LABS: #Basophils 0.1 thou/uL (0.0-0.2); #Eosinphils 0.1 thou/uL (0.0-0.7); #Lymphocytes 1.3 thou/uL (1.20-3.40); #Monocytes 0.5 thou/uL (0.11-0.59); #Neutrophils 2.8 thou/uL (1.40-6.50); %Basophils 1.1 % (0.0-1.0); %Eosinophils 2.7 % (0.0-10.0); %Lymphocytes 26.6 % (21.0-51.0); %Monocytes 11.1 % (0.0-10.0); %Neutrophils 58.6 % (42.0-75.0); Hemoglobin 10.5 g/dL (12.0-16.0); Mean Corpuscular HGB CONC 31.5 g/dL (32.0-36.0); Mean Corpuscular Hemoglobin 29.4 pg (27.0-31.0); Mean Corpuscular Volume 93.5 fl (78.0-98.0); Platelet Count 311 10x3/uL (130-400); RBC Distribution Width 15.3 % (11.5-14.5); Red Blood Cell (RBC) Count 3.56 mill/uL (4.20-5.40); White Blood Cell (WBC) Count 4.8 10x3/uL (4.8-10.8)
[2022-07-13 06:35] LABS: Anion Gap 13 mmol/L (10-20); BUN (Urea Nitrogen) 12 mg/dL (9.8-20.1); Calc. Creatinine Clearance 59 mL/min (70-130); Carbon Dioxide 25 mmol/L (23-31); Chloride 99 mmol/L (98-107); Estimated GFR 83; Glucose 96 mg/dL (83-110); Potassium 3.9 mmol/L (3.5-5.1); Sodium 133 mmol/L (136-145)
[2022-07-13] MEDS: NIFEdipine XL 30 MG TAB PO SCH (07:39)
[2022-07-13] MEDS: guaiFENesin ER 600 MG TAB PO SCH ×2 (07:39→21:19)
[2022-07-13] MEDS: Apixaban 5 MG TAB PO SCH ×2 (07:40→21:19)
[2022-07-13] MEDS: Polyethylene Glycol 3350 17 GM Packet PO SCH (08:06)
[2022-07-13] MEDS: Lidocaine 5% Patch TD SCH (08:12)
[2022-07-13] MEDS: Betamethasone Val 0.1% OINT 15 GM TUBE TOP SCH ×2 (08:12→21:20)
[2022-07-13] MEDS: Loperamide HCl 2 MG CAP PO PRN (08:13)
[2022-07-13] MEDS: Acetaminophen 500 MG TAB PO PRN ×2 (10:56→23:06)
[2022-07-13] MEDS: Cepastat Lozenges 1 LOZ PO PRN (10:59)
[2022-07-13] MEDS: Methocarbamol 500 MG TAB PO PRN ×2 (12:26→21:19)
[2022-07-13] MEDS: Potassium Bicarbonate/Cit Ac 25 MEQ TAB PO SCH (17:53)
[2022-07-13] MEDS: Escitalopram Oxalate 10 mg Tablet PO SCH (21:18)
[2022-07-13] MEDS: LIDOCAINE Patch Removal TOP SCH (21:19)
[2022-07-13] MEDS: hydrOXYzine 25 MG TAB PO SCH (21:19)
[2022-07-13] MEDS: Chlorhexidine Gluconate 15 ML UDCUP SSP PRN (21:30)
[2022-07-13] MEDS: Mag-Al Plus 1200 MG/1200 MG/120 MG/30 ML UDCUP PO PRN (23:04)
[2022-07-14] MEDS: Propranolol HCl 20 MG TAB PO SCH ×2 (05:51→17:32)
[2022-07-14 06:24] LABS: Anion Gap 12 mmol/L (10-20); BUN (Urea Nitrogen) 10 mg/dL (9.8-20.1); Calc. Creatinine Clearance 60 mL/min (70-130); Calcium 9.2 mg/dL (7.8-10.44); Carbon Dioxide 27 mmol/L (23-31); Chloride 100 mmol/L (98-107); Estimated GFR 83; Glucose 101 mg/dL (83-110); Potassium 3.8 mmol/L (3.5-5.1); Sodium 135 mmol/L (136-145)
[2022-07-14] MEDS: Polyethylene Glycol 3350 17 GM Packet PO SCH (08:30)
[2022-07-14] MEDS: Methocarbamol 500 MG TAB PO PRN ×2 (08:30→21:19)
[2022-07-14] MEDS: Lidocaine 5% Patch TD SCH (08:30)
[2022-07-14] MEDS: NIFEdipine XL 30 MG TAB PO SCH (08:32)
[2022-07-14] MEDS: Apixaban 5 MG TAB PO SCH ×2 (08:32→21:19)
[2022-07-14] MEDS: guaiFENesin ER 600 MG TAB PO SCH ×3 (08:32→21:23)
[2022-07-14] MEDS: Diazepam 2 MG TAB PO SCH ×2 (08:33→17:45)
[2022-07-14] MEDS: Betamethasone Val 0.1% OINT 15 GM TUBE TOP SCH ×2 (08:34→21:20)
[2022-07-14] MEDS: Acetaminophen 500 MG TAB PO PRN (17:31)
[2022-07-14] MEDS: Potassium Bicarbonate/Cit Ac 25 MEQ TAB PO SCH (17:32)
[2022-07-14] MEDS: hydrOXYzine 25 MG TAB PO SCH (21:18)
[2022-07-14] MEDS: Mag-Al Plus 1200 MG/1200 MG/120 MG/30 ML UDCUP PO PRN (21:19)
[2022-07-14] MEDS: Escitalopram Oxalate 10 mg Tablet PO SCH (21:19)
[2022-07-14] MEDS: LIDOCAINE Patch Removal TOP SCH (21:20)
[2022-07-14] MEDS: Chlorhexidine Gluconate 15 ML UDCUP SSP PRN (21:29)
[2022-07-15] MEDS: Propranolol HCl 20 MG TAB PO SCH ×2 (05:33→17:48)
[2022-07-15] MEDS: Betamethasone Val 0.1% OINT 15 GM TUBE TOP SCH ×2 (08:57→20:47)
[2022-07-15] MEDS: Lidocaine 5% Patch TD SCH (08:57)
[2022-07-15] MEDS: NIFEdipine XL 30 MG TAB PO SCH (08:58)
[2022-07-15] MEDS: Apixaban 5 MG TAB PO SCH ×2 (08:58→20:46)
[2022-07-15] MEDS: guaiFENesin ER 600 MG TAB PO SCH ×2 (08:59→20:47)
[2022-07-15] MEDS: Polyethylene Glycol 3350 17 GM Packet PO SCH (08:59)
[2022-07-15] MEDS: Senokot S 8.6-50 MG TAB PO PRN (09:01)
[2022-07-15] MEDS: Potassium Bicarbonate/Cit Ac 25 MEQ TAB PO SCH (17:48)
[2022-07-15] MEDS: Acetaminophen 500 MG TAB PO PRN (17:56)
[2022-07-15] MEDS: Methocarbamol 500 MG TAB PO PRN (20:46)
[2022-07-15] MEDS: hydrOXYzine 25 MG TAB PO SCH (20:46)
[2022-07-15] MEDS: Chlorhexidine Gluconate 15 ML UDCUP SSP PRN (20:46)
[2022-07-15] MEDS: Mag-Al Plus 1200 MG/1200 MG/120 MG/30 ML UDCUP PO PRN (20:46)
[2022-07-15] MEDS: Escitalopram Oxalate 10 mg Tablet PO SCH (20:47)
[2022-07-15] MEDS: LIDOCAINE Patch Removal TOP SCH (20:47)
[2022-07-16 05:32] LABS: #Basophils 0.1 thou/uL (0.0-0.2); #Eosinphils 0.1 thou/uL (0.0-0.7); #Lymphocytes 1.2 thou/uL (1.20-3.40); #Monocytes 0.5 thou/uL (0.11-0.59); #Neutrophils 2.3 thou/uL (1.40-6.50); %Basophils 1.2 % (0.0-1.0); %Eosinophils 2.8 % (0.0-10.0); %Lymphocytes 28.6 % (21.0-51.0); %Monocytes 12.4 % (0.0-10.0); %Neutrophils 55.1 % (42.0-75.0); Hemoglobin 10.3 g/dL (12.0-16.0); Mean Corpuscular HGB CONC 30.4 g/dL (32.0-36.0); Mean Corpuscular Hemoglobin 28.5 pg (27.0-31.0); Mean Corpuscular Volume 93.6 fl (78.0-98.0); Mean Platelet Volume 5.1 fL (7.4-10.4); Platelet Count 284 10x3/uL (130-400); RBC Distribution Width 15.3 % (11.5-14.5); Red Blood Cell (RBC) Count 3.62 mill/uL (4.20-5.40); White Blood Cell (WBC) Count 4.3 10x3/uL (4.8-10.8)
[2022-07-16 05:41] LABS: Anion Gap 12 mmol/L (10-20); BUN (Urea Nitrogen) 11 mg/dL (9.8-20.1); Calc. Creatinine Clearance 59 mL/min (70-130); Calcium 9.2 mg/dL (7.8-10.44); Carbon Dioxide 27 mmol/L (23-31); Chloride 99 mmol/L (98-107); Estimated GFR 83; Glucose 95 mg/dL (83-110); Potassium 3.7 mmol/L (3.5-5.1); Sodium 134 mmol/L (136-145)
[2022-07-16] MEDS: Propranolol HCl 20 MG TAB PO SCH ×2 (06:02→17:56)
[2022-07-16] MEDS: Apixaban 5 MG TAB PO SCH ×2 (08:52→21:18)
[2022-07-16] MEDS: Cepastat Lozenges 1 LOZ PO PRN (08:52)
[2022-07-16] MEDS: NIFEdipine XL 30 MG TAB PO SCH (08:52)
[2022-07-16] MEDS: Acetaminophen 500 MG TAB PO PRN (08:52)
[2022-07-16] MEDS: guaiFENesin ER 600 MG TAB PO SCH ×2 (08:52→21:21)
[2022-07-16] MEDS: Polyethylene Glycol 3350 17 GM Packet PO SCH (08:53)
[2022-07-16] MEDS: Betamethasone Val 0.1% OINT 15 GM TUBE TOP SCH ×2 (08:54→21:29)
[2022-07-16] MEDS: Lidocaine 5% Patch TD SCH (08:54)
[2022-07-16] MEDS: Benzonatate 100 MG CAP PO PRN (08:55)
[2022-07-16] MEDS: Senokot S 8.6-50 MG TAB PO PRN (09:03)
[2022-07-16] MEDS: Potassium Bicarbonate/Cit Ac 25 MEQ TAB PO SCH (17:53)
[2022-07-16] MEDS: hydrOXYzine 25 MG TAB PO SCH (21:19)
[2022-07-16] MEDS: Escitalopram Oxalate 10 mg Tablet PO SCH (21:20)
[2022-07-16] MEDS: Methocarbamol 500 MG TAB PO PRN (21:21)
[2022-07-16] MEDS: Chlorhexidine Gluconate 15 ML UDCUP SSP PRN (21:24)
[2022-07-16] MEDS: Mag-Al Plus 1200 MG/1200 MG/120 MG/30 ML UDCUP PO PRN (21:25)
[2022-07-16] MEDS: LIDOCAINE Patch Removal TOP SCH (21:26)
[2022-07-17] MEDS: Acetaminophen 500 MG TAB PO PRN ×3 (02:27→21:04)
[2022-07-17] MEDS: Propranolol HCl 20 MG TAB PO SCH ×2 (06:07→17:41)
[2022-07-17] MEDS: Betamethasone Val 0.1% OINT 15 GM TUBE TOP SCH ×2 (09:12→21:05)
[2022-07-17] MEDS: guaiFENesin ER 600 MG TAB PO SCH ×2 (09:12→21:04)
[2022-07-17] MEDS: NIFEdipine XL 30 MG TAB PO SCH (09:12)
[2022-07-17] MEDS: Lidocaine 5% Patch TD SCH (09:12)
[2022-07-17] MEDS: Apixaban 5 MG TAB PO SCH ×2 (09:13→21:05)
[2022-07-17] MEDS: Polyethylene Glycol 3350 17 GM Packet PO SCH (09:13)
[2022-07-17] MEDS ORDERED: Polyethylene Glycol 3350 17 GM Packet PO PRN (14:24)
[2022-07-17] MEDS: Potassium Bicarbonate/Cit Ac 25 MEQ TAB PO SCH (17:40)
[2022-07-17] MEDS: Mag-Al Plus 1200 MG/1200 MG/120 MG/30 ML UDCUP PO PRN (21:01)
[2022-07-17] MEDS: Chlorhexidine Gluconate 15 ML UDCUP SSP PRN (21:01)
[2022-07-17] MEDS: hydrOXYzine 25 MG TAB PO SCH (21:03)
[2022-07-17] MEDS: Loperamide HCl 2 MG CAP PO PRN (21:03)
[2022-07-17] MEDS: LIDOCAINE Patch Removal TOP SCH (21:05)
[2022-07-17] MEDS: Methocarbamol 500 MG TAB PO PRN (21:05)
[2022-07-17] MEDS: Escitalopram Oxalate 10 mg Tablet PO SCH (21:05)
[2022-07-18] MEDS: Propranolol HCl 20 MG TAB PO SCH ×2 (05:42→17:45)
[2022-07-18 05:58] LABS: #Eosinphils 0.1 thou/uL (0.0-0.7); #Lymphocytes 1.2 thou/uL (1.20-3.40); #Monocytes 0.5 thou/uL (0.11-0.59); #Neutrophils 2.6 thou/uL (1.40-6.50); %Basophils 0.8 % (0.0-1.0); %Eosinophils 2.9 % (0.0-10.0); %Monocytes 10.2 % (0.0-10.0); Hemoglobin 10.6 g/dL (12.0-16.0); Mean Corpuscular HGB CONC 30.4 g/dL (32.0-36.0); Mean Corpuscular Hemoglobin 28.5 pg (27.0-31.0); Mean Corpuscular Volume 93.7 fl (78.0-98.0); Mean Platelet Volume 5.2 fL (7.4-10.4); Platelet Count 287 10x3/uL (130-400); RBC Distribution Width 15.4 % (11.5-14.5); Red Blood Cell (RBC) Count 3.71 mill/uL (4.20-5.40); White Blood Cell (WBC) Count 4.4 10x3/uL (4.8-10.8)
[2022-07-18 06:10] LABS: Anion Gap 14 mmol/L (10-20); BUN (Urea Nitrogen) 10 mg/dL (9.8-20.1); Calc. Creatinine Clearance 63 mL/min (70-130); Calcium 9.1 mg/dL (7.8-10.44); Carbon Dioxide 27 mmol/L (23-31); Chloride 100 mmol/L (98-107); Estimated GFR 84; Glucose 99 mg/dL (83-110); Potassium 3.7 mmol/L (3.5-5.1); Sodium 137 mmol/L (136-145)
[2022-07-18] MEDS: NIFEdipine XL 30 MG TAB PO SCH (09:45)
[2022-07-18] MEDS: Apixaban 5 MG TAB PO SCH ×2 (09:45→21:23)
[2022-07-18] MEDS: Acetaminophen 500 MG TAB PO PRN ×2 (09:46→21:22)
[2022-07-18] MEDS: guaiFENesin ER 600 MG TAB PO SCH ×2 (09:46→21:23)
[2022-07-18] MEDS: Betamethasone Val 0.1% OINT 15 GM TUBE TOP SCH ×2 (09:49→21:23)
[2022-07-18] MEDS: Lidocaine 5% Patch TD SCH (09:49)
[2022-07-18] MEDS: Diclofenac 1% 100 GM GEL TP PRN (15:24)
[2022-07-18] MEDS: Potassium Bicarbonate/Cit Ac 25 MEQ TAB PO SCH (17:44)
[2022-07-18] MEDS: Mag-Al Plus 1200 MG/1200 MG/120 MG/30 ML UDCUP PO PRN (21:22)
[2022-07-18] MEDS: Chlorhexidine Gluconate 15 ML UDCUP SSP PRN (21:22)
[2022-07-18] MEDS: hydrOXYzine 25 MG TAB PO SCH (21:22)
[2022-07-18] MEDS: Methocarbamol 500 MG TAB PO PRN (21:23)
[2022-07-18] MEDS: Escitalopram Oxalate 10 mg Tablet PO SCH (21:23)
[2022-07-18] MEDS: LIDOCAINE Patch Removal TOP SCH (22:03)
[2022-07-19] MEDS: Propranolol HCl 20 MG TAB PO SCH (05:50)
[2022-07-19] MEDS: Acetaminophen 500 MG TAB PO PRN (08:15)
[2022-07-19] MEDS: guaiFENesin ER 600 MG TAB PO SCH (08:16)
[2022-07-19] MEDS: NIFEdipine XL 30 MG TAB PO SCH (08:16)
[2022-07-19] MEDS: Apixaban 5 MG TAB PO SCH (08:16)
[2022-07-19] MEDS: Diclofenac 1% 100 GM GEL TP PRN (08:17)
[2022-07-19 08:18] VITALS: BP 159/90
[2022-07-19] MEDS: Lidocaine 5% Patch TD SCH (08:19)
[2022-07-19 08:26] VITALS: TEMP 97.7
[2022-07-19] MEDS: Betamethasone Val 0.1% OINT 15 GM TUBE TOP SCH (09:55)
[2022-07-19] MEDS ORDERED: Polyethylene Glycol 3350 17 GM Packet PO PRN (13:45)
== END 2022-07-19 14:02 | disposition home health service (06) | DRG 175 ==
LOC: NAV ACUTE 06-15 10:08
PROVIDERS: ADMIT Family Medicine; ATTEND Family Medicine
DX: I26.99 Other pulmonary embolism without acute cor pulmonale (principal); J18.9 Pneumonia, unspecified organism; E87.1 Hypo-osmolality and hyponatremia; R53.1 Weakness; Z66 Do not resuscitate; F41.9 Anxiety disorder, unspecified; Z20.822 Contact with and (suspected) exposure to COVID-19; I10 Essential (primary) hypertension; R53.81 Other malaise; M54.50 Low back pain, unspecified; M94.0 Chondrocostal junction syndrome [Tietze]; K59.01 Slow transit constipation; N63.0 Unspecified lump in unspecified breast; D53.9 Nutritional anemia, unspecified; G89.4 Chronic pain syndrome; K52.9 Noninfective gastroenteritis and colitis, unspecified; R25.1 Tremor, unspecified; L29.9 Pruritus, unspecified; E78.5 Hyperlipidemia, unspecified; Z79.01 Long term (current) use of anticoagulants; Z86.718 Personal history of other venous thrombosis and embolism; Z79.899 Other long term (current) drug therapy; Z88.6 Allergy status to analgesic agent; Z90.49 Acquired absence of other specified parts of digestive tract; Z91.81 History of falling
CPT/HCPCS: 36415; 71045; 71275; 74018; 80048; 80202; 84145; 85025; 87081; 87449; 87633; 87811; J1956; J2543; J3370; J3490; J7050; Q0162; Q9967